=== PATIENT | female | born 2000 | race African-American/Black ===

== ENCOUNTER 2022-06-01 13:31 | Emergency (ER) | payer MEDICAID, SELFPAY ==
[2022-06-01 13:44] VITALS: BP 123/67; PULSE 90; RESP 18; TEMP 36.3; O2SAT 99; BMI 31.2
--- NOTE | 2022-06-01 14:13 | ED.SKABFB ---
HPI - Skin/Abscess/Foreign Bdy General Time Seen by Provider: 14:13 Date Seen: 06/01/22 Chief complaint: Skin/Abscess/Foreign Body Stated complaint: Boil Time Seen by Provider: 06/01/22 14:13 Source: patient, RN notes reviewed and other (Urgent care provider) Mode of arrival: ambulatory Limitations: no limitations History of Present Illness HPI narrative: Patient is a very pleasant [employer] student with a history of PCOS sent to the emergency room from our Urgent Care for evaluation of a labial cyst. Patient tells me that she gets these frequently and usually they last 2-3 days eventually breaking open and draining. Unfortunately, this cyst has been ongoing for 4 days and does not appear to be close to breaking open. She states that she has significant pain on the left perineal area. She has been on antibiotics for 36 hours at this point. Denies history of MRSA, fever or chills. She notes that she was just put on metformin this past week because of this. Urgent care did not feel comfortable managing this patient at their site. Patient notes difficulty with walking and any touch to this area greatly increases her pain. Related Data Home Medications Medication Instructions Recorded Confirmed metformin 500 mg tablet 500 mg PO QDAY 06/01/22 06/01/22 Allergies Allergy/AdvReac Type Severity Reaction Status Date / Time No Known Drug Allergies Allergy Verified 06/01/22 13:44 Review of Systems Status of ROS: Reports: 6 or more systems reviewed and unremarkable except as noted in History and below Const: Denies: fever or chills GI: Denies: abdominal pain, nausea or vomiting Integ/Breast: Reports: skin tenderness and skin swelling PFSH PFSH Social History Smoking Status: Never smoker Do you use any of these nicotine containing products: None Second hand tobacco smoke exposure: No How often do you have a drink containing alcohol: never How often do you have six or more drinks on one occasion: Never AUDIT-C Alcohol total score: 0 Non-prescribed substance use: denies use service: No Exam Narrative: Exam Narrative: Patient is a very pleasant female in no acute distress. No respiratory distress. Examination of the perineal area shows a healing scab on the right. Her on the left she has an area of fullness and fluctuance and the left perineal area. Is below the labia majora. Very tender to the touch. Appears to have perhaps previous scarring or pore in that area. Not warm to the touch. Const: Vital Signs, click to edit/add: Vital Signs - 24 hr 06/01/22 13:44 Temperature 97.4 F L Pulse Rate [Pulse Oximeter] 90 Respiratory Rate 18 Blood Pressure [Le ft Upper Arm] 123/67 Pulse Oximetry 99 Oxygen Delivery Me thod Room Air Documenting provider has reviewed patient's vital signs: yes Course Course Hospital Course: Patient appears to have a perineal cyst. Previous history of this. Upon palpation I think that this is near the surface but certainly is not near where would break open spontaneously and drain as she has experienced in the past. I do suggest incision and drainage of this area. Risks and benefits are discussed with patient and consent form is sign. Risks include bleeding, nerve damage, spread of infection. Will place EMLA at this time but I do think that I will need to inject lidocaine in addition to the topical anesthetic. Reevaluation(s) Reevaluation #1: Incision and drainage procedure note EMLA was placed on the area of fluctuance, left perineum. Bedside ultrasound done showed a proximally 1 x 1.75 cm area of fluid directly beneath skin surface. Area was cleansed with alcohol pad. Lidocaine with epinephrine was used to anesthetize skin surface and then further deeper tissue. A 0.9 cm semi diagonal incision through epidermis and dermis was made. Minimal incursion into the subcutaneous tissue until we encountered a large amount of purulent drainage that came freely from the wound. Culture was accomplished. The incision was extended a total of 0.2 mm for a total of 1.1 cm length. Blunt dissection with forceps carefully done. Large amount of purulent fluid continue to drain. At this time wound is gaping approximately 2 mm. Bleeding is controlled. Small amount of purulence continues to drain. No evidence of extension into the perianal area. Patient tolerated procedure well. Consultations Consultation #1: Consulted with OBGYN in regards to this patient. Will see patient in follow-up. Vital Signs Vital signs: Initial Vital Signs Temperature 97.4 F L 06/01/22 13:44 Temperature Source Temporal Artery Scan 06/01/22 13:44 Pulse Rate 90 06/01/22 13:44 Pulse Rhythm 06/01/22 13:44 Respiratory Rate 18 06/01/22 13:44 Blood Pressure 123/67 06/01/22 13:44 Blood Pressure Mean 85 06/01/22 13:44 Blood Pressure Position Supine 06/01/22 13:44 Pulse Oximetry 99 06/01/22 13:44 Oxygen Delivery Method 06/01/22 13:44 Vital Signs Temperature 97.4 F L 06/01/22 13:44 Pulse Rate 90 06/01/22 13:44 Respiratory Rate 18 06/01/22 13:44 Blood Pressure 123/67 06/01/22 13:44 Pulse Oximetry 99 06/01/22 13:44 Oxygen Delivery Method 06/01/22 13:44 Temperature 97.4 F L 06/01/22 13:44 Pulse Rate 90 06/01/22 13:44 Respiratory Rate 18 06/01/22 13:44 Blood Pressure 123/67 06/01/22 13:44 Pulse Oximetry 99 06/01/22 13:44 Oxygen Delivery Method 06/01/22 13:44 MDM - Skin/Abscess/Foreign Bdy MDM Narrative Medical decision making narrative: 1. Perineal abscess-incision and drainage done after informed consent. Patient tolerated procedure well. Would have patient to continue her antibiotic and take the full course. I do not believe there is any surrounding cellulitis at this point and I and D peers successful. Culture is pending. Discussed use of peroneal bottle after urinating and to cleanse this area while showering. Return to the emergency room for fever, increased swelling, worsening pain as needed. Recommend ibuprofen or Tylenol as needed for discomfort. Pain should be much improved since this pressure is now released. 2. Disposition-home at this time. We are arranging follow-up with OBGYN for recheck. Speak about possibility of further blunt dissection if warranted. I am hoping that will not be the case. Return to the emergency room as needed for worsening symptoms, especially fever, chills, worsening swelling and as needed. Patient request note for school activities. Given her note for no school today and excuse from any athletic or active activities over the next 5 days. Discharge Plan Discharge Clinical Impression: Abscess Patient Disposition: Home, Self-Care Condition: Improved Instructions: Abscess (ED), Abscess Follow-up (ED) Additional Instructions: Continue your antibiotics and finish them out. Ibuprofen or Tylenol as needed for pain. Return to the emergency room for fever, worsening swelling, pain and as needed. Follow-up with OBGYN for recheck on Sunday with Dr. Kohler at 9:30 AM. Use squeeze bottle to help cleanse this area. Prescriptions: No Action metformin 500 mg tablet 500 mg PO QDAY Label Comments: Has not started yet. Follow Up/Referrals: Provider,Not a Local [Primary Care Provider] - Stand Alone Forms: [facility] Info Instructions Procedures I/D Type: abscess Site: other (Lateral perineum/inferior gluteal area) Pre procedure diagnosis: Abscess Post procedure diagnosis: Status post abscess drainage Written consent by: patient Site marking: alternative site marking used Verification/time out: correct patient, correct site and correct procedure Name of person performing procedure: Joy Srivastava [employer] Instructor 1, if any: Nurse [place] Anesthesia I&D: lidocaine 1%, with Epi and other (EMLA) Amount of anesthesia used (mls): 1.5 Side (if applicable): left Sedation/analgesia: none Technique: incised with #11 blade Irrigation: No Packing used?: none Estimated blood loss (if any): less than 5mls Complications: pain Conclusion: patient tolerated procedure
[2022-06-01] MEDS: LIDOCAINE/PRILOCAINE 2.5-2.5% CREAM 1 APPLIC TOPICAL (14:36)
== END 2022-06-01 16:30 | disposition home or self-care (01) ==
PROVIDERS: Emergency Provider Family Medicine
DX: L02.215 Cutaneous abscess of perineum (principal)
CPT/HCPCS: 10060; 56405; 87070; 87186; 99283; 99284

== ENCOUNTER 2022-06-05 10:09 | Outpatient (CLI) | payer MEDICAID, SELFPAY | END 2022-06-05 10:10 | disposition home or self-care (01) | PROVIDERS: Visit Provider Obstetrics & Gynecology | DX: R63.5 Abnormal weight gain (principal); E28.2 Polycystic ovarian syndrome | CPT/HCPCS: 84146; 84443 ==

== ENCOUNTER 2022-07-11 15:55 | Emergency (ER) | payer MEDICAID, SELFPAY ==
[2022-07-11 16:14] VITALS: BP 115/80; PULSE 79; RESP 18; TEMP 36.4; O2SAT 100; BMI 30.7
--- NOTE | 2022-07-11 16:33 | ED_ITS ---
HPI - General Adult General Time Seen by Provider: 16:33 Date Seen: 07/11/22 Chief complaint: Shoulder Injury/Pain Stated complaint: l. shoulder injury Time Seen by Provider: 07/11/22 16:24 Source: patient and RN notes reviewed Mode of arrival: ambulatory Limitations: no limitations History of Present Illness HPI narrative: Patient is a 21-year-old college student from [place] coming in with left shoulder pain. She was leaning on her bed with her elbow flexed and her hand holding her head. She was in this position for a while. Since then her shoulders been aching, hurt today. She has not taken anything today. No prior injury. There was no trauma. No numbness or tingling. It hurts when she moves her arm forward and overhead. She was able to reach behind her back without any difficulty. Related Data Home Medications Medication Instructions Recorded Confirmed metformin 500 mg tablet 500 mg PO QDAY 06/01/22 06/05/22 Previous Rx's Medication Instructions Recorded norelgestromin 150 mcg-e.estradiol 1 patch transdermal QWEEK #3 ea 06/05/22 35 mcg/24 hr weekly transderm patch (Xulane) Allergies Allergy/AdvReac Type Severity Reaction Status Date / Time No Known Drug Allergies Allergy Verified 07/11/22 16:14 Review of Systems Narrative: As per HPI PFSH PFSH Social History Smoking Status: Never smoker Do you use any of these nicotine containing products: None Second hand tobacco smoke exposure: No How often do you have a drink containing alcohol: never How often do you have six or more drinks on one occasion: Never AUDIT-C Alcohol total score: 0 Non-prescribed substance use: denies use service: No Exam Const: Vital Signs, click to edit/add: Vital Signs - 24 hr 07/11/22 16:14 Temperature 97.6 F Pulse Rate [Pulse Oximeter] 79 Respiratory Rate 18 Blood Pressure [Ri ght Upper Arm] 115/80 Pulse Oximetry 100 Oxygen Delivery Me thod Room Air Patient is alert interactive no apparent distress. No midline tenderness of her neck, no paraspinous tenderness. Clavicle and AC joint nontender. There is no glenohumeral joint swelling. She has pain on arc of abduction over 90?, hurts more so coming down. Forward flexion does cause some pain for her. Her biceps tendon is not tender in the bicipital groove. No pain or give-way strength testing with her biceps muscle. She has impingement sign on the left shoulder. Distal neurovascular is intact. No loss of strength but is painful when testing the rotator cuff. Documenting provider has reviewed patient's vital signs: yes Course Course Hospital Course: Reviewed with patient that I believe that she has irritated her rotator cuff tendon or bursa by the position yesterday. Given there was no trauma, do not feel that we need xrays at this time, if ongoing issues, can be ordered if needed. Will have her treat conservatively, follow up with orthopedics if ongoing issues. Vital Signs Vital signs: Initial Vital Signs Temperature 97.6 F 07/11/22 16:14 Temperature Source Temporal Artery Scan 07/11/22 16:14 Pulse Rate 79 07/11/22 16:14 Pulse Rhythm Regular 07/11/22 16:14 Respiratory Rate 18 07/11/22 16:14 Blood Pressure 115/80 07/11/22 16:14 Blood Pressure Mean 91 07/11/22 16:14 Blood Pressure Position Sitting 07/11/22 16:14 Pulse Oximetry 100 07/11/22 16:14 Oxygen Delivery Method Room Air 07/11/22 16:14 Vital Signs Temperature 97.6 F 07/11/22 16:14 Pulse Rate 79 07/11/22 16:14 Respiratory Rate 18 07/11/22 16:14 Blood Pressure 115/80 07/11/22 16:14 Pulse Oximetry 100 07/11/22 16:14 Oxygen Delivery Method Room Air 07/11/22 16:14 Temperature 97.6 F 07/11/22 16:14 Pulse Rate 79 07/11/22 16:14 Respiratory Rate 18 07/11/22 16:14 Blood Pressure 115/80 07/11/22 16:14 Pulse Oximetry 100 07/11/22 16:14 Oxygen Delivery Method Room Air 07/11/22 16:14 Discharge Plan Discharge Clinical Impression: Acute pain of left shoulder Patient Disposition: Home, Self-Care Condition: Stable Instructions: Rotator Cuff Tendinitis (ED), Shoulder Pain (ED) Additional Instructions: Use Tylenol 1000 mg 3 times a day, ibuprofen 600 mg 3 to 4 times a day with food as needed for pain. Ice the left shoulder. If you are not improving over the next week or worsening, do recommend contacting the orthopedic office to get scheduled for follow-up. That number is [phone]. Activity above your shoulder, pressing on the shoulder like sleeping on your left shoulder are all activities that might aggravate your shoulder at this time. Activity Level: Activity as Tolerated Prescriptions: No Action Xulane 150-35 mcg/24 hr patch weekly 1 patch transdermal QWEEK Qty: 3 4RF Rx Instructions: apply once weekly for 3 weeks of a 4-week cycle metformin 500 mg tablet 500 mg PO QDAY Patient Comments: Has not started yet. Follow Up/Referrals: Provider,Not a Local [Primary Care Provider] - Stand Alone Forms: [employer] Info Instructions
== END 2022-07-11 17:15 | disposition home or self-care (01) ==
PROVIDERS: Emergency Provider Family Medicine
DX: M25.512 Pain in left shoulder (principal)
CPT/HCPCS: 99282; 99283

== ENCOUNTER 2022-10-02 09:08 | Emergency (ER) | payer MEDICAID, SELFPAY ==
[2022-10-02 09:24] VITALS: BP 125/80; PULSE 84; RESP 18; TEMP 36.5; O2SAT 99; BMI 30.7
--- NOTE | 2022-10-02 09:32 | ED.SKABFB ---
HPI - Skin/Abscess/Foreign Bdy General Time Seen by Provider: 09:32 Date Seen: 10/02/22 Chief complaint: Skin/Abscess/Foreign Body Stated complaint: Abscess on groin Time Seen by Provider: 10/02/22 09:25 Source: patient and RN notes reviewed Mode of arrival: ambulatory Limitations: no limitations History of Present Illness HPI narrative: Patient is a very pleasant 21-year-old female with history of PCOS and hidradenitis suppurativa who presents to the [facility] [place] [facility] for evaluation of 2 potential areas of swelling on the groin. Patient notes that she has boils at least monthly. They she presents with concerns regarding the swelling and irritation of an area on her left upper mons pubis as well as the inferior buttock area. She has not had fever or chills but does report occasional headaches. She notes that the goal is to not use antibiotics when she has something like this happen. She is willing to have these areas lanced today if necessary. I did see her for similar complaints a few months ago and she has not had the opportunity to follow-up with OBGYN at this point. Related Data Home Medications Medication Instructions Recorded Confirmed metformin 500 mg tablet 500 mg PO QDAY 06/01/22 10/02/22 ferrous sulfate 325 mg (65 mg 325 mg PO DAILY 10/02/22 10/02/22 iron) tablet (FeroSul) Previous Rx's Medication Instructions Recorded norelgestromin 150 mcg-e.estradiol 1 patch transdermal QWEEK #3 ea 06/05/22 35 mcg/24 hr weekly transderm patch (Xulane) Allergies Allergy/AdvReac Type Severity Reaction Status Date / Time No Known Drug Allergies Allergy Verified 10/02/22 09:30 Review of Systems Status of ROS: Reports: 6 or more systems reviewed and unremarkable except as noted in History and below Const: Denies: fever or chills GI: Denies: abdominal pain, nausea or vomiting Integ/Breast: Reports: skin pain, skin tenderness and skin swelling Neuro: Reports: headache PFSH PFSH Social History Smoking Status: Never smoker Do you use any of these nicotine containing products: None Second hand tobacco smoke exposure: No How often do you have a drink containing alcohol: never How often do you have six or more drinks on one occasion: Never AUDIT-C Alcohol total score: 0 Non-prescribed substance use: denies use service: No Exam Narrative: Exam Narrative: Patient is alert and oriented. Very pleasant young woman in no acute distress. Examination of the genital area shows at area of firmness but no significant fluctuance on the left upper mons pubis. No evidence of purulent discharge at this time. No surrounding erythema. On the inferior buttock just distal to the labia majora on the left there is a firm area of measuring approximately 2 x 2 cm with tenderness. There is a well-healed scar in this area measuring approximately 1.25 cm there does appear to be increased tautness of the skin in this area. No significant surrounding erythema. No drainage at this time. Patient was diagnosed with PCOS and hidradenitis suppurativa when she was in high school living in [facility]. She has been treated with various therapies including homeopathic remedies such as (karine, honey, sitz baths, and multiple antibiotics). She also notes that she has had several abscesses underneath her armpits. She no longer have those abscesses underneath her armpits but describes groin symptoms at least monthly. Const: Vital Signs, click to edit/add: Vital Signs - 24 hr 10/02/22 09:24 Temperature 97.7 F Pulse Rate [Right Pulse Oximeter] 84 Respiratory Rate 18 Blood Pressure [Ri ght Upper Arm] 125/80 Pulse Oximetry 99 Oxygen Delivery Me thod Room Air Documenting provider has reviewed patient's vital signs: yes Course Course Hospital Course: At this time I do not believe that incision and drainage of the painful area on the mons pubis would be beneficial. I do not feel that this is organized into a drainable abscess at this point. However on the inferior buttocks I do think that this would be hill to perform incision and drainage. Risks benefits were discussed with patient. This would include bleeding, infection, discomfort. Patient is agreeable to this plan. Reevaluation(s) Reevaluation #1: Procedure note: Patient had area of abscess prepped with Betadine swabs. 1% lidocaine with epinephrine was infused in wheel like fashion on the edge of previous scarring. A 4 mm linear cut was made without immediate release of purulent fluid. This area was extended 1-1/2 mm on each edge and blunt dissection with minimal effort was made and a large amount of purulent fluid was drained. No significant foul smell. Small amount of blood with this as well. I was able to express further purulent fluid. Mostly liquid at this point. There are no firm amounts of debris that are coming out. A small wick was placed. Hemostasis achieved. Vital Signs Vital signs: Initial Vital Signs Temperature 97.7 F 10/02/22 09:24 Temperature Source Temporal Artery Scan 10/02/22 09:24 Pulse Rate 84 10/02/22 09:24 Respiratory Rate 18 10/02/22 09:24 Blood Pressure 125/80 10/02/22 09:24 Blood Pressure Mean 95 10/02/22 09:24 Blood Pressure Position Sitting 10/02/22 09:24 Pulse Oximetry 99 10/02/22 09:24 Oxygen Delivery Method Room Air 10/02/22 09:24 Vital Signs Temperature 97.7 F 10/02/22 09:24 Pulse Rate 84 10/02/22 09:24 Respiratory Rate 18 10/02/22 09:24 Blood Pressure 125/80 10/02/22 09:24 Pulse Oximetry 99 10/02/22 09:24 Oxygen Delivery Method Room Air 10/02/22 09:24 Temperature 97.7 F 10/02/22 09:24 Pulse Rate 84 10/02/22 09:24 Respiratory Rate 18 10/02/22 09:24 Blood Pressure 125/80 10/02/22 09:24 Pulse Oximetry 99 10/02/22 09:24 Oxygen Delivery Method Room Air 10/02/22 09:24 MDM - Skin/Abscess/Foreign Bdy MDM Narrative Medical decision making narrative: 1. Abscess-incision and drainage after informed consent done in the emergency room. A wick is in place at this time. Will have patient follow-up with OBGYN this week for recheck. Although the wick is in place and taped of this is in a challenging area to keep clean. If this does fall out of it does not need to be replaced at this time. Recommend warm water bath. In regards to evolving abscess on mons pubis, I do not feel that this is organized and that an incision drainage would not be helpful at this time. Recommend monitoring and warm packs. Patient would like to avoid antibiotics at this point and I would tend to agree with her. 2. Disposition-home at this time. Return for worsening symptoms and as needed. Follow-up with Ob GI why end for recheck. Course for fever, chills, increasing swelling erythema vomiting she will need to return to the emergency room. I do not expect this would happen. Medical Records Attestation: I reviewed the patient's medical records. Discharge Plan Discharge Clinical Impression: Abscess Patient Disposition: Home, Self-Care Condition: Improved Additional Instructions: Leave wick in as long as possible but if it falls out it should not cause a problem. Seek medical attention for fever, worsening symptoms and as needed. Ibuprofen or Tylenol as needed for discomfort. Follow up appointment is scheduled at the [facility] on 10/03 with a 1:30pm appointment time. If you have any questions or need to reschedule, please call [phone]. [address] [address] Prescriptions: No Action Xulane 150-35 mcg/24 hr patch weekly 1 patch transdermal QWEEK Qty: 3 4RF Rx Instructions: apply once weekly for 3 weeks of a 4-week cycle metformin 500 mg tablet 500 mg PO QDAY Patient Comments: Has not started yet. ferrous sulfate [FeroSul] 325 mg (65 mg iron) tablet 325 mg PO DAILY Follow Up/Referrals: Provider,Not a Local [Primary Care Provider] - Stand Alone Forms: [employer] Info Instructions
== END 2022-10-02 10:47 | disposition home or self-care (01) ==
LOC: ED 10:35
PROVIDERS: Emergency Provider Family Medicine
DX: L02.215 Cutaneous abscess of perineum (principal); L02.31 Cutaneous abscess of buttock
CPT/HCPCS: 10060; 99283

== ENCOUNTER 2022-10-13 15:16 | Outpatient (CLI) | payer MEDICAID, SELFPAY | END 2022-10-13 15:17 | disposition home or self-care (01) | PROVIDERS: Visit Provider Family Medicine | DX: Z00.00 Encounter for general adult medical examination without abnormal findings (principal); E66.9 Obesity, unspecified; D50.9 Iron deficiency anemia, unspecified; R63.5 Abnormal weight gain; R53.83 Other fatigue; F41.9 Anxiety disorder, unspecified; E28.2 Polycystic ovarian syndrome; Z13.6 Encounter for screening for cardiovascular disorders | CPT/HCPCS: 80053; 80061; 82728; 84443 ==

== ENCOUNTER 2023-01-05 12:07 | Outpatient (CLI) | payer MEDICAID, SELFPAY ==
[2023-01-05 16:33] LABS: Chlamydia DNA Amplified* NOT DETECTED (No Detected); GC DNA Amplified* NOT DETECTED (No Detected)
== END 2023-01-05 12:08 | disposition home or self-care (01) ==
LOC: NFLDREF 12:08
PROVIDERS: Visit Provider Physician Assistant
DX: Z01.812 Encounter for preprocedural laboratory examination (principal); Z13.9 Encounter for screening, unspecified; Z11.3 Encounter for screening for infections with a predominantly sexual mode of transmission
CPT/HCPCS: 87491; 87591

== ENCOUNTER 2023-02-10 16:56 | Emergency (ER) | payer MEDICAID, SELFPAY ==
[2023-02-10 17:10] VITALS: BP 134/73; PULSE 87; RESP 18; TEMP 36.3; O2SAT 99; BMI 32.4
--- NOTE | 2023-02-10 17:29 | ED_ITS ---
HPI - General Adult General Date Seen: 02/10/23 Chief complaint: Abdominal Pain Stated complaint: lower abdominal pain Time Seen by Provider: 02/10/23 17:16 Source: patient Mode of arrival: ambulatory Limitations: no limitations History of Present Illness HPI narrative: Patient is a 22-year-old with a history of polycystic ovarian disorder and IUD placement about a month ago who presents for lower abdominal cramping. She said that this started 2 days ago, she thought it was menstrual cramping but seems to be getting worse. It is improved by ibuprofen but comes back when the ibuprofen wears off. It is bilateral but more on the right than the left. She had some spotting after the IUD placement for couple weeks but no bleeding since then. Denies sexual activity or new sexual partners concerns about STIs. She has not had any unusual vaginal discharge. She has not had fevers. She did vomit prior to coming in this afternoon but otherwise has not had any vomiting or diarrhea. Maybe a little nausea in the past couple of hours but otherwise her appetite has been normal. She does not have a history of similar pain in terms of intensity although the quality is similar to to menstrual cramps. She does not have any urinary symptoms. No prior abdominal surgeries. Denies tobacco, alcohol or drug use, [employer] student. Related Data Home Medications Medication Instructions Recorded Confirmed metformin 500 mg tablet 500 mg PO QDAY 06/01/22 01/19/23 ferrous sulfate 325 mg (65 mg 325 mg PO DAILY 10/02/22 01/19/23 iron) tablet (FeroSul) Previous Rx's Medication Instructions Recorded fluoxetine 20 mg capsule 20 mg PO QDAY #90 caps 01/19/23 Allergies Allergy/AdvReac Type Severity Reaction Status Date / Time faustino AdvReac Intermediate Rash Uncoded 01/19/23 14:02 Review of Systems Status of ROS: Reports: 10 or more systems reviewed and unremarkable except as noted in History and below [facility] Medical History Generalized anxiety disorder ?F41.1 - Generalized anxiety disorder (ICD-10) Obesity (BMI 30.0-34.9) ?E66.9 - Obesity, unspecified (ICD-10) Iron (Fe) deficiency anemia ?D50.9 - Iron deficiency anemia, unspecified (ICD-10) Anxiety (~01/05/23) ?F41.9 - Anxiety disorder, unspecified (ICD-10) Hidradenitis suppurativa ?L73.2 - Hidradenitis suppurativa (ICD-10) PCOS (polycystic ovarian syndrome) ?E28.2 - Polycystic ovarian syndrome (ICD-10) Surgical History (Updated 01/19/23 @ 14:26 by Eleonora Luna MD) Encounter for IUD insertion (~12/2022) ?Z30.430 - Encounter for insertion of intrauterine contraceptive device (ICD- 10) No history of previous surgery Family History Mother Diabetes Father Diabetes Alcohol dependence Uncle FH: mental illness Social History Narrative: Single, [employer] student of psychology/ culture/neuro science. Born in [place] live the [facility] Exercise 3 times a week weight 60 minutes, dance 30 minutes, incline walking on treadmill 30 minutes Nonsmoker Rare alcohol use, no drugs [employer] student. From [facility]. Nonsmoker, no alcohol use, no illicit drug use Smoking Status: Never smoker Do you use any of these nicotine containing products: None Second hand tobacco smoke exposure: No How often do you have a drink containing alcohol: never How often do you have six or more drinks on one occasion: Never AUDIT-C Alcohol total score: 0 Non-prescribed substance use: denies use Little interest or pleasure in doing things: several days Feeling down, depressed, or hopeless: more than half the days service: No Exam Narrative: Exam Narrative: Vital signs as noted above. In general, an alert, well-appearing patient. Looks comfortable. Head: Normocephalic, atraumatic. Eyes: Pupils are equal reactive. Extraocular movements are full. Conjunctivae are normal. ENT: Mucous membranes are moist. Neck: Supple without lymphadenopathy. Heart: Regular rate and rhythm. No murmur or rub. Lungs: Clear bilaterally. No increased work of breathing, crackles or wheezes. Abdomen: Soft and nondistended. Nontender to palpation including McBurney's point, no rebound guarding or rigidity. Negative Ascencio's. Extremities: Well perfused. No edema. No calf tenderness. Pulses intact. Neurologic: Patient is alert and oriented to person and place. Speech is fluent. Face is symmetric. Moves all extremities equally. Affect: Normal. Skin: Warm and dry. Well perfused. Const: Vital Signs, click to edit/add: Vital Signs - 24 hr 02/10/23 17:10 Temperature 97.4 F L Pulse Rate [Pulse Oximeter] 87 Respiratory Rate 18 Blood Pressure [Le ft Upper Arm] 134/73 Pulse Oximetry 99 Oxygen Delivery Me thod Room Air Documenting provider has reviewed patient's vital signs: yes Course Course ED Course: Overall exam is pretty non concerning, she feels comfortable at this time after taking ibuprofen a couple of hours ago, denies need for pain medication or anything for nausea at this time. Plan will be to check some basic labs, I think those are normal be reasonable to do a pelvic ultrasound to evaluate for possible cyst. Certainly possible that she is having her period and not having any bleeding secondary to the IUD and is just having some more intense cramping. Appendicitis felt to be less likely given normal appetite and lack of abdominal tenderness but if labs are significantly abnormal a would potentially consider CT scanning. Labs notable for normal white blood cell count of 4.9, hemoglobin of 11.8, no left shift. CRP minimally elevated at 1.6, metabolic panel LFTs normal. Urinalysis ordered but does not appear to have been collected yet. She went on to have a pelvic ultrasound. This is read as follows by Radiology:FINDINGS: Reported last menstrual period: 01/08/2023. The uterus is normal in size and position and measures 7.1 x 3.6 x 4.9 cm. No uterine masses. The endometrial stripe measures 1.0 cm in double thickness. No endometrial masses. IUD appears to be in sonographically appropriate position. The cervix is normal. The right ovary measures 4.8 x 2.2 x 2.2 cm. Physiologic appearance without a dominant cystic lesion or solid ovarian/adnexal mass. There is normal arterial and venous color Doppler flow and normal arterial and venous waveforms on duplex Doppler. The left ovary measures 6.8 x 3.9 x 4.8 cm. There is a 5.1 x 3.8 x 4.4 cm complex adnexal cyst. There are some somewhat thick septations with anechoic areas and a large area of lace-like reticular echogenicity. No internal vascularity. No solid nodular component. No solid or worrisome left adnexal mass. There is normal arterial and venous color Doppler flow and normal arterial and venous waveforms on duplex Doppler. Trace free fluid. IMPRESSION: 1. The intrauterine device is in radiographically in good position within the endometrial canal. 2. There is a 5.1 cm left ovarian hemorrhagic cyst. She did have some Toradol IM here, she said that was very helpful, minimal pain at this time. I am not overly concerned about the possibility of ovarian torsio n in this patient given the progression of symptoms, minimal pain and good blood flow on ultrasound. Hemorrhagic cyst is likely largely contributory to her symptoms. Recommend supportive care, ibuprofen or Tylenol, Gyne follow-up. Return for severe uncontrolled pain or new symptoms such as fever, persistent vomiting, etcetera. Vital Signs Vital signs: Initial Vital Signs Temperature 97.4 F L 02/10/23 17:10 Temperature Source Temporal Artery Scan 02/10/23 17:10 Pulse Rate 87 02/10/23 17:10 Pulse Rhythm Regular 02/10/23 17:10 Respiratory Rate 18 02/10/23 17:10 Blood Pressure 134/73 02/10/23 17:10 Blood Pressure Mean 93 02/10/23 17:10 Blood Pressure Position Supine 02/10/23 17:10 Pulse Oximetry 99 02/10/23 17:10 Oxygen Delivery Method Room Air 02/10/23 17:10 Vital Signs Temperature 97.4 F L 02/10/23 17:10 Pulse Rate 87 02/10/23 17:10 Respiratory Rate 18 02/10/23 17:10 Blood Pressure 134/73 02/10/23 17:10 Pulse Oximetry 99 02/10/23 17:10 Oxygen Delivery Method Room Air 02/10/23 17:10 Temperature 97.4 F L 02/10/23 17:10 Pulse Rate 87 02/10/23 17:10 Respiratory Rate 18 02/10/23 17:10 Blood Pressure 134/73 02/10/23 17:10 Pulse Oximetry 99 02/10/23 17:10 Oxygen Delivery Method Room Air 02/10/23 17:10 Medications Administered Medications: Discontinued Medications Generic Name Dose Route Start Last Admin Trade Name Freq PRN Reason Stop Dose Admin Ketorolac Tromethamine 30 mg 02/10/23 18:39 02/10/23 19:05 Ketorolac 30 Mg/Ml Inj IM 02/10/23 18:40 30 mg ONCE ONE Administration Medical Decision Making Lab Data Labs: Lab Results 02/10/23 Range/Units 17:38 WBC 4.89 (4.50-11.00) K/uL RBC 4.58 (4.00-5.20) m/uL Hgb 11.8 L (12.0-16.0) gm/dL Hct 37.6 (33.0-51.0) % MCV 82 (80-100) fL MCH 26 (26-34) pg MCHC 31 L (32-36) gm/dL RDW Coeff of Bill 14.0 (11.5-15.5) % Plt Count 378 (140-440) K/uL Neut % (Auto) 49.7 (42.0-72.0) % Lymph % (Auto) 40.9 (20-44) % Sheridan % (Auto) 7.8 (0.0-11.0) % Eos % (Auto) 1.0 (0.0-7.0) % Baso % (Auto) 0.2 (0.0-3.0) % Neut # (Auto) 2.43 (1.7-7.0) K/uL Lymph # (Auto) 2.00 (0.90-2.90) K/uL Sheridan # (Auto) 0.40 (0.00-0.90) K/UL Eos # (Auto) 0.05 (0.00-0.50) K/uL Baso # (Auto) 0.01 (0.00-0.30) K/uL Abs Immat Gran (auto) 0.02 (0.00-0.30) K/uL Imm/Tot Granulo (auto) 0.4 % Sodium 139 (135-149) mmol/L Potassium 4.0 (3.6-5.1) mmol/L Chloride 107 (96-114) mmol/L Carbon Dioxide 22 (20-32) mmol/L Anion Gap 10 (7-15) mEq/L BUN 15 (5-24) mg/dL Creatinine 0.6 (0.5-1.5) mg/dL Estimated Creat Clear 140.01 Estimated GFR 132 ml/min Glucose 119 H (60-115) mg/dL Calcium 9.3 (8.4-10.6) mg/dL Total Bilirubin 0.3 (0.1-1.5) mg/dL Direct Bilirubin 0.0 (0.0-0.5) mg/dL AST 26 (12-35) U/L ALT 17 (4-35) U/L Alkaline Phosphatase 102 (40-150) U/L C-Reactive Protein 1.6 H (0.5-1.0) mg/dL Total Protein 7.3 (6.0-8.3) g/dL Albumin 4.0 (3.3-5.0) g/dL Discharge Plan Discharge Clinical Impression: Hemorrhagic cyst of left ovary Patient Disposition: Home, Self-Care Condition: Improved Instructions: Ovarian Cyst (ED) Additional Instructions: Ibuprofen 400 mg plus Tylenol 1000 mg 3 times daily as needed for pain. Your ultrasound shows a hemorrhagic cyst, meaning a cyst that has had bleeding inside of it. This is likely the cause of your discomfort over the past couple of days. This typically improves with time. You should not have severe uncontrolled pain going forward, if so you should return for re-evaluation. Likewise if you have new symptoms such as fever, persistent vomiting, or other worsening returned any time. Otherwise, I would recommend follow-up in Gyne clinic, to schedule. Your IUD looks well positioned. Activity Level: No Restrictions Discharge Diet: Regular Prescriptions: No Action metformin 500 mg tablet 500 mg PO QDAY Patient Comments: Has not started yet. fluoxetine 20 mg capsule 20 mg PO QDAY Qty: 90 0RF ferrous sulfate [FeroSul] 325 mg (65 mg iron) tablet 325 mg PO DAILY Follow Up/Referrals: Eleonora Luna MD [Primary Care Provider] - Stand Alone Forms: Stipple Info Instructions
[2023-02-10 17:45] LABS: Basophils Absolute Auto 0.01 K/uL (0.00-0.30); Basophils Percent Auto 0.2 % (0.0-3.0); Eosinophils Absolute Auto 0.05 K/uL (0.00-0.50); Hematocrit 37.6 % (33.0-51.0); Hemoglobin* 11.8 gm/dL (12.0-16.0); Immature Granulocytes Abs Auto 0.02 K/uL (0.00-0.30); Immature Granulocytes Pct Auto 0.4 %; Lymphocytes Percent Auto 40.9 % (20-44); Mean Corpuscular HGB Conc 31 gm/dL (32-36); Mean Corpuscular Hemoglobin 26 pg (26-34); Mean Corpuscular Volume 82 fL (80-100); Monocytes Percent Auto 7.8 % (0.0-11.0); Neutrophils Absolute Auto 2.43 K/uL (1.7-7.0); Neutrophils Percent Auto 49.7 % (42.0-72.0); Platelet Count* 378 K/uL (140-440); Red Blood Count 4.58 m/uL (4.00-5.20); White Blood Count* 4.89 K/uL (4.50-11.00)
[2023-02-10 17:53] LABS: Slide Review Reflex No
[2023-02-10 17:55] LABS: Chloride* 107 mmol/L (96-114); Sodium* 139 mmol/L (135-149)
[2023-02-10 17:58] LABS: Creatinine* 0.6 mg/dL (0.5-1.5); Est. Creatinine Clearance* 140.01; Estimated Glomerular Filt Rate 132 ml/min
[2023-02-10 17:59] LABS: Anion Gap 10 mEq/L (7-15); Aspartate Amino Transferase* 26 U/L (12-35); Bilirubin Total* 0.3 mg/dL (0.1-1.5); Blood Urea Nitrogen* 15 mg/dL (5-24); Calcium* 9.3 mg/dL (8.4-10.6); Carbon Dioxide* 22 mmol/L (20-32); Glucose* 119 mg/dL (60-115); Total Protein* 7.3 g/dL (6.0-8.3)
[2023-02-10 18:00] LABS: Alanine Aminotransferase* 17 U/L (4-35); Alkaline Phosphatase* 102 U/L (40-150)
[2023-02-10 18:02] LABS: C Reactive Protein* 1.6 mg/dL (0.5-1.0)
--- NOTE | 2023-02-10 18:04 | CRLHL7_ITS ---
For Patients: As a result of the Century Cures Act, medical imaging exams and procedure reports are released immediately into your electronic medical record. You may view this report before your referring provider. If you have questions, please contact your health care provider. INDICATION: Lower abdominal pain, recent IUD placement COMPARISON: None. TECHNIQUE: TA: Multiple transverse and longitudinal transabdominal images of the pelvis are performed using the distended bladder as an acoustic window. Color-flow and spectral Doppler imaging of both ovaries is performed. TV: Transvaginal ultrasound of the pelvis was performed to better visualize the genitourinary organs, such as the ovaries and/or endometrium. Color-flow and spectral Doppler imaging of both ovaries is performed. FINDINGS: Reported last menstrual period: 01/08/2023. The uterus is normal in size and position and measures 7.1 x 3.6 x 4.9 cm. No uterine masses. The endometrial stripe measures 1.0 cm in double thickness. No endometrial masses. IUD appears to be in sonographically appropriate position. The cervix is normal. The right ovary measures 4.8 x 2.2 x 2.2 cm. Physiologic appearance without a dominant cystic lesion or solid ovarian/adnexal mass. There is normal arterial and venous color Doppler flow and normal arterial and venous waveforms on duplex Doppler. The left ovary measures 6.8 x 3.9 x 4.8 cm. There is a 5.1 x 3.8 x 4.4 cm complex adnexal cyst. There are some somewhat thick septations with anechoic areas and a large area of lace-like reticular echogenicity. No internal vascularity. No solid nodular component. No solid or worrisome left adnexal mass. There is normal arterial and venous color Doppler flow and normal arterial and venous waveforms on duplex Doppler. Trace free fluid. IMPRESSION: 1. The intrauterine device is in radiographically in good position within the endometrial canal. 2. There is a 5.1 cm left ovarian hemorrhagic cyst. Dictated by Zuri Marsh MD @ 02/10/2023 8:34:45 PM (Electronically Signed)
[2023-02-10] MEDS: KETOROLAC 30 MG/ML inj IM (19:05)
== END 2023-02-10 20:49 | disposition home or self-care (01) ==
PROVIDERS: Emergency Provider Emergency Medicine; PCP Family Medicine
DX: N83.202 Unspecified ovarian cyst, left side (principal); Z13.6 Encounter for screening for cardiovascular disorders
CPT/HCPCS: 36415; 76830; 76856; 80048; 80076; 81001; 81025; 85025; 86140; 93976; 96372; 99284; J1885

== ENCOUNTER 2023-05-23 14:46 | Outpatient (CLI) | payer MEDICAID, SELFPAY | END 2023-05-23 14:47 | disposition home or self-care (01) | PROVIDERS: PCP Family Medicine; Visit Provider Family Medicine | DX: D50.9 Iron deficiency anemia, unspecified (principal) | CPT/HCPCS: 82607; 82728 ==

== ENCOUNTER 2023-06-20 14:34 | Outpatient (RCR) | payer MEDICAID, SELFPAY ==
--- NOTE | 2023-06-22 08:06 | PT.OPEX ---
PT [facility] Outpatient Eval PT [facility] Outpatient Eval Start: 06/13/23 07:49 Freq: Status: Active Protocol: Document 06/20/23 14:35 KLV (Rec: 06/20/23 15:08 KLV [id number]) E-signed By Celina Douglass, PT Physical Therapy Outpatient Evaluation Insurance Information Recert Due Date 09/14/23 Insurance Information/Comments [employer] medicaid Medical Diagnosis Pain in right ankle and joints in right foot Treating Diagnosis Right ankle pain, hypermobility, ankle weakness Referring MD Luna Subjective Subjective Makayla reports to PT with acute on chronic ankle pain and reoccurring ankle sprains since she was a child R>L. Most recently suffered from a pretty severe inversion ankle sprain while in her home country of [place]. She had an x-ray at that time which was unremarkable. She has generalized hypermobility and significant flat feet. Typically she has walked on the outsides of her feet as that has given her the most balance. She recently started wearing small arch support inserts in her shoes however no significant change with this yet. She has been able to walk with 3/10 pain. No pain at rest. She likes to participate in dance however has had to limit the amount she jumps/hops. She does have an ankle brace but does not use this frequently. PMH:RIVAS, obesity, anxiety, anemia Pain Comments 06/02 Date of Last Physician Visit 05/23/23 Current Work Status Student Objective Other/Pertinent Objective Ankle ROM: General hypermobility B, equal and pain free today Ankle Strength (R/L): -DF: R: 4/5, L: 4+/5 -PF (uni heel raise): R: 1 reps painful, L: 8 reps -Inv: R: 4/5, L: 4+/5 -Polly: R: 4-/5, L: 4/5 Ankle Ligamentous: -Ant Drawer: more laxity R compared to L -Post Drawer: - -Syndesmosis (Kleiger): - -Lateral ankle: + R -Medial ankle: - TTP deltoid ligament and ATFL Functional Test Performed & Score LEFS IE: 47/80 Assessment Assessment/Impression Patient is a 22 year old female presenting to physical therapy for evaluation and treatment of right ankle pain following multiple ankle sprains throughout her life. Patient presents with generalizes hypermobility, medial and lateral ankle pain, impaired balance, ankle weakness. These impairments are limiting the patients ability to walk, dance, jump, hop. Patient appears motivated to participate in PT and presents with good prognosis to improve mobility, strength, proprioception and return to functional activities with skilled physical therapy intervention. Primary Functional Limitations walk, dance, jump, hop Plan of Care Rehabilitation Potential Good Physical Therapy Goals In 6 weeks (08/03/23) Pt will be able to demonstrate 10 single leg heel raises in order to progress to more dynamic ankle strengthening Pt will demonstrate at least 4 +/5 ankle strength in all directions in order to demonstrate functional improvement In 10 weeks (08/31/23) Pt will be able to balance at least 30 sec on foam in order to demonstrate improvement in dynamic stability Pt will report <1/10 ankle pain and 0 occurrences of ankle sprains/feeling of instability over a 2 week period with all activities including dance Pt will exhibit 9 pt improvement in LEFS Outcome measure to demonstrate functional improvement and progress towards goals. Treatment Plan/Direct Interventions Gait Training,Ice/Cold/ Vasopneumatic,Joint Mobilization,Manual Therapy, Neuromuscular Re-ed,Self-Care/ Home Management,Therapeutic Activities,Therapeutic Exercises Frequency/Duration 1x/wk for 6 weeks with additional 2-4 sessions prn based on progress Patient Will Be Discharged From Therapy Completion of LTG(s), Independent w/HEP, Independently Progressing Evaluation Billing Untimed Code Treatment Minutes 23 Complexity Low Certification Information Initial Certification Date 06/22/23 Ending Certification Date 09/16/23 Provider Signature Shows Agreement With POC & Medical Necessity Physician Signature & Date Requested Please Sign/Date Here Physician Comment/Change : Physician NPI Number #
== END 2023-10-18 23:59 | disposition home or self-care (01) ==
PROVIDERS: PCP Family Medicine; Visit Provider Family Medicine
DX: M25.571 Pain in right ankle and joints of right foot (principal); T14.8XXA Other injury of unspecified body region, initial encounter; Z74.09 Other reduced mobility; R29.898 Other symptoms and signs involving the musculoskeletal system; Z51.89 Encounter for other specified aftercare
CPT/HCPCS: 97110; 97161

== ENCOUNTER 2023-07-06 15:14 | Outpatient (CLI) | payer MEDICAID, SELFPAY ==
--- OUTSIDE RECORDS SUMMARY | 2023-07-06 15:16 | XMS_ITS | Clinical Summary ---
Author Name Unknown Organization [facility] Address [place], [place] [address] Care Team Providers Care Twister Tender Paper Name Role Phone [facility] Primary Care Provider Unavail able Allergies No known active allergies Medications Medication Sig Dispensed Refills Start Date End Date Status Xulane 150-35 mcg/24 hr patch APPLY 1 PATCH TOPICALLY TO THE SKIN EVERY WEEK FOR 3 WEEKS DIRECTED 05/17/2022 Active albuterol HFA (PRO-AIR; VENTOLIN; PROVENTIL) 90 mcg/actuation inhalerIndications:E xercise-induced asthma Inhale 1-2 Puffs by mouth every 4 hours if needed for Shortness Of Breath or Wheezing. 1 Each 05/29/2022 Active ferrous sulfate, 65 mg elemental, tabletIndications:Ir on deficiency anemia secondary to inadequate dietary iron intake Take 1 Tablet (325 mg) by mouth once daily with a meal. 90 Tablet 2 06/13/2022 Active metFORMIN (GLUCOPHAGE XR) 500 mg Extended-Release tabletIndications:PC OS (polycystic ovarian syndrome) Take 1 Tablet (500 mg) by mouth once daily. 90 Tablet 3 09/05/2022 Active Immunizations Name Administration Dates Next Due DTaP 03/23/2003,02/06/2003,01/06/2003 HIB-HepB (Comvax) 04/20/2004,02/06/2003,01/07/20 03 HPV 9 (Gardasil 9) 04/26/2016,01/24/2015 Hepatitis B (Peds) 2002 Inactivated Polio Vaccine 03/23/2003,02/06/2003, 01/06/2003 Influenza, IIV3 (Age 6-35 mos) 04/20/2004 Influenza, IIV4 01/04/2022,01/31/2021 MMR 04/20/2004 Pneumococcal conj 7-Valent ( Prevnar 7) 04/20/2004,03/23/2003,02/06/2003,2002 Tdap 01/24/2015 Varicella Vaccine 04/20/2004 Family History Medical History Relation Name Comments Asthma Brother Eczema Brother Diabetes type II Father Hypertension Father Sickle cell anemia Maternal Uncle Diabetes type II Mother Fibroids Mother Relation Name Status Comments Brother Alive Father Alive Maternal Uncle Alive Mother Alive Social History Tobacco Use Types Packs/Day Years Used Date Smoking Tobacco: Never Smokeless Tobacco: Never Tobacco Cessation:Counseling Given: Not Answered Alcohol Use Standard Drinks/Week Comments Never 0 (1 standard drink = 0.6 oz pur e alcohol) PHQ-2 Answer Date Recorded PHQ-2 TOTAL SCORE 0 09/05/2022 Social Connections Answer Date Recorded Frequency of Communication with Friends and Fami ly Not on file 05/29/2022 Sex and Gender Information Value Date Recorded Sex Assigned at Not on file Gender Identity Not on file Sexual Orientation Not on file Obstetrics History Last Filed Vital Signs Vital Sign Reading Time Taken Comments Blood Pressure 101/69 09/05/2022 3:14 PM CDT Pulse 97 09/05/2022 3:14 PM CDT Temperature - - Respiratory Rate - - Oxygen Saturation 99% 09/05/2022 3:14 PM CDT Inhaled Oxygen Concentration - - Weight 92.8 kg (204 lb 9.6 oz) 09/05/2022 3:14 P M CDT Height 167.5 cm (5' 5.95) 05/29/2022 7:10 AM CS T Body Mass Index - - Plan of Treatment Health Maintenance Due Date Last Done Comments COVID-19 vaccine series (2022- season) 2022 01/04/2022, 07/01/2021, 01/01/2021, Additional history exists BMI (ht and wt on same day) for age 18+ 05/30/2023 05/29/2022 Chlamydia for age 16-24 05/30/2023 05/29/2022 Well Child Check for age 3-20 05/30/2023 05/29/2022 Depression screening for age 12+ 09/08/2023 09/07/2022, 09/05/2022, 05/29/2022 Influenza for age 9-49 11/25/2023 01/04/2022, 2020 Tetanus booster 01/24/2025 01/24/2015 Pneumococcal series for age 6-64 Aged Out 04/20/2004, 03/23/2003, 02/06/2003, Additional history exists No longer eligible based on patient's age to complete this topic Tdap Completed 01/24/2015 HPV series for age 9-26 Completed 04/26/2016, 01/24 HIV for age 15-65 Completed 05/29/2022 Hepatitis C screening for age 18-79 Completed 05/29/2022 Meningococcal series for age 11-21 Aged Out No longer eligible based on patient's age to complete this topic Procedures Procedure Name Priority Date/Time Associated Diagnosis Comments GC CHLAMYDIA TRACH PROBE Routine 05/29/2022 7:53 AM MANAGER MOTOR Screening examination for STD (sexually transmitted disease) LC HIV-1/O/2, 4TH GENERATION Routine 05/29/2022 7:47 AM MANAGER MOTOR Screening for HIV (human immunodeficiency virus) LC HCV ANTIBODY RFX TO QUANT PCR Routine 05/29/2022 7:47 AM MANAGER MOTOR Encounter for hepatitis C screening test for low risk patient from Last 3 Months or Most Recently Relevant to Health Maintenance Results * GC & CHLAMYDIA DNA PCR [[id number]] (05/29/2022 7:53 AM MANAGER MOTOR) CHLAMYDIA PROBE Negative 7:17 PM MANAGER MOTOR [facility] N GONORRHOEAE PROBE Negative 05/29/2022 7:17 PM MANAGER MOTOR [facility] Other URINE SPECIMEN / Unknown Non-Blood / Unknown 05/29/2022 7:53 AM MANAGER MOTOR 05/29/2022 7:53 AM MANAGER MOTOR [facility] [address] [place] [address], * LC HCV ANTIBODY RFX TO QUANT PCR (05/29/2022 7:47 AM MANAGER MOTOR) HCV Ab Non Reactive Non Reactive 05/31/2022 10:06 PM MANAGER MOTOR [facility] Blood BLOOD SPECIMEN / Unknown Venipuncture / Unknown 05/29/2022 7:47 AM MANAGER MOTOR 05/29/2022 7:47 AM MANAGER MOTOR Narrative [facility] - 05/31/2022 10:06 PM MANAGER MOTOR Performed at: ??[address] ??[id number] Shaper Setter: Tim Alamo MD, Phone: ??[phone] [facility] Performing Organization Address [facility] Co de Phone Number [facility] ([facility]) [address] [place] [id number], * HIV-1/O/2, 4TH GENERATION (05/29/2022 7:47 AM MANAGER MOTOR) Pathologist [facility] HIV Scr 4th Gen Non Reactive Non Reactive 05/31/2022 10:07 PM MANAGER MOTOR [facility] ([facility]) Comment: HIV Negative HIV-1/HIV-2 antibodies and HIV-1 p24 antigen were NOT detected. There is no laboratory evidence of HIV infection. Blood BLOOD SPECIMEN / Unknown Venipuncture / Unknown 05/29/2022 7:47 AM MANAGER MOTOR 05/29/2022 7:47 AM MANAGER MOTOR Narrative [facility] ([facility]) - 05/31/2022 10:07 PM MANAGER MOTOR Performed at: ??[address] ??[id number] Shaper Setter: Tim Alamo MD, Phone: ??[phone] [facility] Performing Organization Address [facility]/ZIP Co de Phone Number [facility] ([facility]) [address] [place] [address], from Last 3 Months or Most Recently Relevant to Health Maintenance Care Teams Twister Tender Paper Relationship Specialty Start Date End Date Na Naik PCP - General 05/18/22
[2023-07-06 19:57] LABS: Chlamydia DNA Amplified* NOT DETECTED (No Detected); GC DNA Amplified* NOT DETECTED (No Detected)
== END 2023-07-06 15:15 | disposition home or self-care (01) ==
LOC: NFLDREF 15:14
PROVIDERS: PCP Family Medicine; Visit Provider Registered Nurse
DX: Z11.3 Encounter for screening for infections with a predominantly sexual mode of transmission (principal)
CPT/HCPCS: 87491; 87591

== ENCOUNTER 2023-07-10 09:49 | Emergency (ER) | payer MEDICAID, SELFPAY ==
[2023-07-10 09:54] VITALS: BP 120/74; PULSE 78; RESP 14; TEMP 36.5; O2SAT 99; BMI 32.8
--- NOTE | 2023-07-10 10:02 | ED.SKABFB ---
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 2 days ago she also noticed a little left breast lump right along the areola. She has had no breast discharge. This area is really not painful. She does have underlying hidradenitis suppurativa. She has had no fevers or chills. She is on contraceptives, has an IUD. MD complaint: abscess/boil Tetanus up to date: yes Related Data Previous Rx's Medication Instructions Recorded lorazepam 0.5 mg tablet 0.5 - 1 mg (1 - 2 x 0.5 mg) PO 03/09/23 QDAY PRN anxiety #10 tabs metformin 500 mg tablet 500 mg PO QDAY #90 tabs 03/09/23 fluoxetine 40 mg capsule 40 mg PO QDAY #60 caps 05/23/23 ferrous sulfate 325 mg (65 mg 325 mg PO DAILY #90 tabs 07/09/23 iron) tablet (FeroSul) doxycycline monohydrate 100 mg 100 mg PO BID #14 tabs 07/10/23 tablet ketorolac 10 mg tablet 10 mg PO Q6H PRN pain #20 tabs 07/10/23 tramadol 50 mg tablet 50 mg PO Q8H PRN pain #6 tabs 07/10/23 Allergies Allergy/AdvReac Type Severity Reaction Status Date / Time faustino AdvReac Intermediate Rash Uncoded 07/06/23 14:43 Review of Systems Narrative: As per HPI. PFSH PFS Medical History Generalized anxiety disorder ?F41.1 - Generalized anxiety disorder (ICD-10) Obesity (BMI 30.0-34.9) ?E66.9 - Obesity, unspecified (ICD-10) Iron (Fe) deficiency anemia ?D50.9 - Iron deficiency anemia, unspecified (ICD-10) Anxiety (~01/05/23) ?F41.9 - Anxiety disorder, unspecified (ICD-10) Hidradenitis suppurativa ?L73.2 - Hidradenitis suppurativa (ICD-10) PCOS (polycystic ovarian syndrome) ?E28.2 - Polycystic ovarian syndrome (ICD-10) Surgical History Encounter for IUD insertion (~12/2022) ?Z30.430 - Encounter for insertion of intrauterine contraceptive device (ICD-10) No history of previous surgery Family History Mother Diabetes Father Diabetes Alcohol dependence Uncle FH: mental illness Social History Narrative: Single, [employer] student of psychology/ culture/neuro science. Born in [place] live the [facility] and [place] [employer] Exercise 3 times a week weight 60 minutes, dance 30 minutes, incline walking on treadmill 30 minutes Nonsmoker Rare alcohol use, no drugs [employer] student. From [facility]. Nonsmoker, no alcohol use, no illicit drug use Smoking Status: Never smoker Do you use any of these nicotine containing products: None Second hand tobacco smoke exposure: No How often do you have a drink containing alcohol: never How often do you have six or more drinks on one occasion: Never AUDIT-C Alcohol total score: 0 Non-prescribed substance use: denies use Little interest or pleasure in doing things: nearly every day Feeling down, depressed, or hopeless: not at all service: No Exam Const: Vital Signs, click to edit/add: Vital Signs - 24 hr 07/10/23 09:54 Temperature 97.7 F Pulse Rate [Pulse Oximeter] 78 Respiratory Rate 14 Blood Pressure [Ri ght Upper Arm] 120/74 Pulse Oximetry 99 Oxygen Delivery Me thod Room Air Patient is alert, interactive, no apparent distress. CV regular rate rhythm, no murmur. Left breast visualize, no overlying skin changes, nipple and areola look normal. No nipple discharge. Right at about a 9 o'clock to 10 o'clock position along the edge of the areola, feel a small subcutaneous nodular area less than 1 cm in size. It is firm, nontender. Does not feel fluctuant. In patient's perineal area along the medial buttocks on either side there are lesions of the skin, the left side is fluctuant, very tender, at least feels like it is a couple cm in size, patient does not tolerate palpation very well which does make it difficult to completely assess. Juxtaposed right on the other side is a smaller firm less than 1 cm lesion which patient states is not that painful. Both of these areas have central overlying scars, does sound as if they have both been opened before. The right side is not really bothering her and is not fluctuant but the left side is most definitely fluctuant an abscessed. Patient consent is obtained for incision and drainage. Documenting provider has reviewed patient's vital signs: yes Course Reevaluation(s) Time of Reevaluation #1: 10:32 Reevaluation #1: Completed incision and drainage of patient's right inner left buttock wound. She had an old scar in this area, this was the area over central fluctuance. I injected 2 mL of 1% lidocaine with epinephrine locally and into the tissue. An 18 gauge needle was then placed in the center of this, aspirated back about 2 mL of mucopurulent bloody fluid. Over the area of aspiration, I placed a approximately 0.6 linear opening in the skin which was congruent with the previous scar. A bit more mucopurulent fluid was expressed. The cavity was flushed with sterile saline. Patient tolerated procedure well, no immediate complications. Minimal bleeding. We will send a culture. Time of Reevaluation #2: 10:51 Vital Signs Vital signs: Initial Vital Signs Temperature 97.7 F 07/10/23 09:54 Temperature Source Temporal Artery Scan 07/10/23 09:54 Pulse Rate 78 07/10/23 09:54 Pulse Rhythm Regular 07/10/23 09:54 Respiratory Rate 14 07/10/23 09:54 Blood Pressure 120/74 07/10/23 09:54 Blood Pressure Mean 89 07/10/23 09:54 Blood Pressure Position Sitting 07/10/23 09:54 Pulse Oximetry 99 07/10/23 09:54 Oxygen Delivery Method Room Air 07/10/23 09:54 Vital Signs Temperature 97.7 F 07/10/23 09:54 Pulse Rate 78 07/10/23 09:54 Respiratory Rate 14 07/10/23 09:54 Blood Pressure 120/74 07/10/23 09:54 Pulse Oximetry 99 07/10/23 09:54 Oxygen Delivery Method Room Air 07/10/23 09:54 Temperature 97.7 F 07/10/23 09:54 Pulse Rate 78 07/10/23 09:54 Respiratory Rate 14 07/10/23 09:54 Blood Pressure 120/74 07/10/23 09:54 Pulse Oximetry 99 07/10/23 09:54 Oxygen Delivery Method Room Air 07/10/23 09:54 Discharge Plan Discharge Clinical Impression: Breast lump in female, Hidradenitis suppurativa, Abscess of buttock, left Patient Disposition: Home, Self-Care Condition: Stable Instructions: Abscess (ED), Hidradenitis Suppurativa (ED) Additional Instructions: Start antibiotic as soon as possible, take as prescribed. Do recommend following with Dermatology for your hidradenitis suppurativa. If the left breast lesion is not going down with treatment with antibiotic, you will need to follow up in clinic and get a left breast ultrasound scheduled. The left breast lesions should completely resolve with the antibiotics and if it does not, breast ultrasound needs to be done. Left breast ultrasound can be ordered through clinic if needed. Can use the tramadol per prescription for severe pain, this is a narcotic and need to review the patient Education Materials. I have written for Toradol which she can use per prescription, this is an anti-inflammatory. Once the Toradol is gone, can transition back to ibuprofen. You can always use underlying Tylenol 1000 mg 3 times a day baseline for pain. I understand that Tylenol may not be completely sufficient on its own for pain management for you but it may augment with these other medicines and do recommend you using this baseline. Activity Level: Activity as Tolerated Prescriptions: New doxycycline monohydrate 100 mg tablet 100 mg PO BID Qty: 14 0RF tramadol 50 mg tablet 50 mg PO Q8H PRN (Reason: pain) Qty: 6 0RF ketorolac 10 mg tablet 10 mg PO Q6H PRN (Reason: pain) Qty: 20 0RF Rx Instructions: maximum total duration of 5 days from all oral, intranasal, or parenteral formulations No Action metformin 500 mg tablet 500 mg PO QDAY Qty: 90 1RF lorazepam 0.5 mg tablet 0.5 - 1 mg PO QDAY PRN (Reason: anxiety) Qty: 10 0RF fluoxetine 40 mg capsule 40 mg PO QDAY Qty: 60 0RF ferrous sulfate [FeroSul] 325 mg (65 mg iron) tablet 325 mg PO DAILY Qty: 90 0RF Follow Up/Referrals: Eleonora Luna MD [Primary Care Provider] - Stand Alone Forms: IM5 Info Instructions
--- OUTSIDE RECORDS SUMMARY | 2023-07-10 10:58 | XMS_ITS | Clinical Summary ---
Author Name Unknown Organization [employer] [facility] [employer] [facility] Address [place], [place] [address] Care Team Providers Care Hall Manager Name Role Phone [facility] Primary Care Provider Unavail [...] CHLAMYDIA TRACH PROBE Routine 05/29/2022 7:53 AM ICT SUPPORT TECHNICIANS Screening examination for STD (sexually transmitted disease) LC HIV-1/O/2, 4TH GENERATION Routine 05/29/2022 7:47 AM ICT SUPPORT TECHNICIANS Screening for HIV (human immunodeficiency virus) LC HCV ANTIBODY RFX TO QUANT PCR Routine 05/29/2022 7:47 AM ICT SUPPORT TECHNICIANS Encounter for hepatitis C screening test for low risk patient from Last 3 Months or Most Recently Relevant to Health Maintenance Results * GC & CHLAMYDIA DNA PCR [[id number]] (05/29/2022 7:53 AM ICT SUPPORT TECHNICIANS) CHLAMYDIA PROBE Negative 7:17 PM ICT SUPPORT TECHNICIANS [facility] N GONORRHOEAE PROBE Negative 05/29/2022 7:17 PM ICT SUPPORT TECHNICIANS [facility] Other URINE SPECIMEN / Unknown Non-Blood / Unknown 05/29/2022 7:53 AM ICT SUPPORT TECHNICIANS 05/29/2022 7:53 AM ICT SUPPORT TECHNICIANS Beena NAVARRO MICROBIOLOGY [facility] [address] [place] [address], * LC HCV ANTIBODY RFX TO QUANT PCR (05/29/2022 7:47 AM ICT SUPPORT TECHNICIANS) HCV Ab Non Reactive Non Reactive 05/31/2022 10:06 PM ICT SUPPORT TECHNICIANS [facility] ([facility]) Blood BLOOD SPECIMEN / Unknown Venipuncture / Unknown 05/29/2022 7:47 AM ICT SUPPORT TECHNICIANS 05/29/2022 7:47 AM ICT SUPPORT TECHNICIANS Narrative [facility] ([facility]) - 05/31/2022 10:06 PM ICT SUPPORT TECHNICIANS Performed at: ??[address] ??[id number] Solid Waste Truck Driver: Tim Alamo MD, Phone: ??[phone] Be[facility] Performing Organization Address [facility] Co de Phone Number [facility] ([facility]) [address] [place] [id number], * HIV-1/O/2, 4TH GENERATION (05/29/2022 7:47 AM ICT SUPPORT TECHNICIANS) Pathologist [facility] HIV Scr 4th Gen Non Reactive Non Reactive 05/31/2022 10:07 PM ICT SUPPORT TECHNICIANS [facility] ([facility]) Comment: HIV Negative HIV-1/HIV-2 antibodies and HIV-1 p24 antigen were NOT detected. There is no laboratory evidence of HIV infection. Blood BLOOD SPECIMEN / Unknown Venipuncture / Unknown 05/29/2022 7:47 AM ICT SUPPORT TECHNICIANS 05/29/2022 7:47 AM ICT SUPPORT TECHNICIANS Narrative [facility] ([facility]) - 05/31/2022 10:07 PM ICT SUPPORT TECHNICIANS Performed at: ??[address] ??[id number] Solid Waste Truck Driver: Tim Alamo MD, Phone: ??[phone] [facility] Performing Organization Address [facility]/ZIP Co de Phone Number [facility] ([facility]) [address] [place] [address], from Last 3 Months or Most Recently Relevant to Health Maintenance Care Teams Hall Manager Relationship Specialty Start Date End Date Na Naik PCP - General 05/18/22
[2023-07-10] MEDS: KETOROLAC 30 MG/ML inj IM (11:03)
== END 2023-07-10 11:05 | disposition home or self-care (01) ==
LOC: ED 10:56
PROVIDERS: Emergency Provider Family Medicine; PCP Family Medicine
DX: L02.31 Cutaneous abscess of buttock (principal); L73.2 Hidradenitis suppurativa; N63.20 Unspecified lump in the left breast, unspecified quadrant
CPT/HCPCS: 10060; 87070; 87076; 87181; 96372; 99283; 99284; J1885

== ENCOUNTER 2023-07-20 14:29 | Outpatient (CLI) | payer MEDICAID, SELFPAY ==
--- OUTSIDE RECORDS SUMMARY | 2023-07-20 14:31 | XMS_ITS | Clinical Summary ---
Author Name Unknown Organization [employer] [facility] Address [place], [place] [address] Care Team Providers Care Workday Senior Associate Name Role Phone [facility] Primary Care Provider Unavail able Allergies No [...] once daily. 90 Tablet 3 09/05/2022 Active Encounters Date Type Department Care Team Description 07/16/2023 Lab Requisition [facility] [phone] Jacqueline Yang MD from Last 3 Months Immunizations Name Administration Dates Next Due DTaP [...] Date Last Done Comments COVID-19 vaccine series ( season) 2022 01/04/2022, 07/01/2021, 01/01/2021, Additional history [...] Procedure Name Priority Date/Time Associated Diagnosis Comments REFERRAL ID/SUSC,ANAEROBE Routine 07/10/2023 10:34 AM CDT GC CHLAMYDIA TRACH PROBE Routine 05/29/2022 7:53 AM WEIGHT TRAINER Screening examination for STD (sexually transmitted disease) LC HIV-1/O/2, 4TH GENERATION Routine 05/29/2022 7:47 AM WEIGHT TRAINER Screening for HIV (human immunodeficiency virus) LC HCV ANTIBODY RFX TO QUANT PCR Routine 05/29/2022 7:47 AM WEIGHT TRAINER Encounter for hepatitis C screening test for low risk patient from Last 3 Months or Most Recently Relevant to Health Maintenance Results * (ABNORMAL) REFERRAL ID/SUSC,ANAEROBE (07/10/2023 10:34 AM CDT) CULTURE RESULT(A) 07/19/2023 2:05 PM CDT [facility] CULTURE Bacteroides ovatus 07/19/2023 2:05 PM CDT [facility] Other Client Collect / Unknown 07/10/2023 10:34 AM CDT 07/16/2023 4:10 PM CDT Narrative Organism Antibiotic Method Susceptibility Bacteroides ovatus PENICILLIN 32: R Bacteroides ovatus CLINDAMYCIN 4: I Bacteroides ovatus CEFOXITIN 32: I Bacteroides ovatus IMIPENEM 0.12: S Bacteroides ovatus METRONIDAZOLE 1: S Jacqueline Yang MD MICROBIOLOG[facility] [address] [place] [address], * GC & CHLAMYDIA DNA PCR [[id number]] (05/29/2022 7:53 AM WEIGHT TRAINER) CHLAMYDIA PROBE Negative 7:17 PM WEIGHT TRAINER [facility] N GONORRHOEAE PROBE Negative 05/29/2022 7:17 PM WEIGHT TRAINER [facility] Other URINE SPECIMEN / Unknown Non-Blood / Unknown 05/29/2022 7:53 AM WEIGHT TRAINER 05/29/2022 7:53 AM WEIGHT TRAINER Beena NAVARRO MICROBIOLOGY [facility] [address] [place] [address], * LC HCV ANTIBODY RFX TO QUANT PCR (05/29/2022 7:47 AM WEIGHT TRAINER) HCV Ab Non Reactive Non Reactive 05/31/2022 10:06 PM WEIGHT TRAINER [facility]) Blood BLOOD SPECIMEN / Unknown Venipuncture / Unknown 05/29/2022 7:47 AM WEIGHT TRAINER 05/29/2022 7:47 AM WEIGHT TRAINER Narrative [facility]) - 05/31/2022 10:06 PM WEIGHT TRAINER Performed at: ??[address] - [address] ??[id number] Ophthalmology Technician: Tim Alamo MD, Phone: ??[phone] Beena NAVARRO LABORAT[facility] ([facility]) [address] [place] [address], * LC HIV-1/O/2, 4TH GENERATION (05/29/2022 7:47 AM WEIGHT TRAINER) HIV Scr 4th Gen Non Reactive Non Reactive 05/31/2022 10:07 PM WEIGHT TRAINER [facility] ([facility]) Comment: HIV Negative HIV-1/HIV-2 antibodies and HIV-1 p24 antigen were NOT detected. There is no laboratory evidence of HIV infection. Blood BLOOD SPECIMEN / Unknown Venipuncture / Unknown 05/29/2022 7:47 AM WEIGHT TRAINER 05/29/2022 7:47 AM WEIGHT TRAINER Narrative [facility] ([facility]) - 05/31/2022 10:07 PM WEIGHT TRAINER Performed at: ??[address] - [address] ??[id number] Ophthalmology Technician: Tim Alamo MD, Phone: ??[phone] Be[facility]O [facility] ([facility]) [address] [place] [address] from Last 3 Months or Most Recently Relevant to Health Maintenance Care Teams Workday Senior Associate Relationship Specialty Start Date End Date Na Naik PCP - General 05/18/22
--- NOTE | 2023-07-20 15:00 | US_ITS ---
Patient: GRANT HAYWOOD Facility:?[facility] Patient ID:?[id number] Site Patient ID:?[id number] Site :?2002 Study:?US-Pelvis PELVIS TA & TV-07/20/2023 3:29:42 PM Ordering Physician:?NICK DOOLEY CNP Final Report: INDICATION: Dysmenorrhea COMPARISON: Pelvic ultrasound from 02/10/2023. FINDINGS: Transvaginal and transabdominal ultrasound examination of the female pelvis was performed. Initial examination is performed with transabdominal technique and transvaginal technique is used for better visualization of the pelvic structures. The uterus is anteverted with no evidence of mass. It measures 8.2 x 3.2 x 4.3 cm. The endometrial lining is prominently increased in thickness at 18 mm. It was previously seen to be mildly thickened at 10 millimeters. An intrauterine device is in satisfactory position in the superior uterine cavity. The previously seen complex left ovarian cyst has completely resolved. The ovaries are normal in appearance and size, the right measuring 4.3 x 2.9 x 3.4 cm and the left measuring 4.2 x 1.8 x 3.1 cm. There is normal color and pulse doppler flow in both ovaries. There is a trace amount of free fluid, probably physiologic. IMPRESSION: 1. Moderate thickening of the endometrial lining which is nonspecific and may be related to the patient`s menstrual cycle. 2. Satisfactory positioning of a T-shaped intrauterine device. 3. Resolution of previously seen complex left ovarian cyst. Normal appearance of the ovaries. Dictated by Philip Mcpherson MD @ 07/21/2023 11:09:29 PM Signed by:?Philip Mcpherson MD @07/21/2023 11:09:29 PM (Electronic Signature)
== END 2023-07-20 14:30 | disposition home or self-care (01) ==
LOC: US 14:29
PROVIDERS: PCP Family Medicine; Visit Provider Registered Nurse
DX: N94.6 Dysmenorrhea, unspecified (principal); R93.89 Abnormal findings on diagnostic imaging of other specified body structures; N83.202 Unspecified ovarian cyst, left side
CPT/HCPCS: 76830; 76856; 93976

== ENCOUNTER 2023-07-27 10:18 | Outpatient (CLI) | payer MEDICAID, SELFPAY ==
--- OUTSIDE RECORDS SUMMARY | 2023-07-27 10:21 | XMS_ITS | Clinical Summary ---
Author Name Unknown Organization [employer] [facility] Address [place], [place] [address] Care Team Providers Care Lead Ramp Agent Name Role Phone [place] [facility] Primary Care Provider Unavail able Allergies [...] Department Care Team Description 07/16/2023 Lab Requisition [facility] [phone] Jacqueline Yang MD from Last 3 Months [...] CHLAMYDIA TRACH PROBE Routine 05/29/2022 7:53 AM SUGAR REFINER Screening examination for STD (sexually transmitted disease) LC HIV-1/O/2, 4TH GENERATION Routine 05/29/2022 7:47 AM SUGAR REFINER Screening for HIV (human immunodeficiency virus) LC HCV ANTIBODY RFX TO QUANT PCR Routine 05/29/2022 7:47 AM SUGAR REFINER Encounter for hepatitis C screening test for low risk patient from Last 3 Months or Most Recently Relevant to Health Maintenance Results * (ABNORMAL) REFERRAL ID/SUSC,ANAEROBE (07/10/2023 10:34 AM CDT) CULTURE RESULT(A) 07/19/2023 2:05 PM CDT [facility] CULTURE Bacteroides ovatus 07/19/2023 2:05 PM CDT [facility] Other Client Collect / Unknown 07/10/2023 10:34 AM CDT 07/16/2023 4:10 PM CDT Narrative Organism Antibiotic Method Susceptibility Bacteroides ovatus PENICILLIN 32: R Bacteroides ovatus CLINDAMYCIN 4: I Bacteroides ovatus CEFOXITIN 32: I Bacteroides ovatus IMIPENEM 0.12: S Bacteroides ovatus METRONIDAZOLE 1: S Jacqueline Yang MD [facility] [address] [place] [address], * GC & CHLAMYDIA DNA PCR [[id number]] (05/29/2022 7:53 AM SUGAR REFINER) CHLAMYDIA PROBE Negative 7:17 PM SUGAR REFINER [facility] N GONORRHOEAE PROBE Negative 05/29/2022 7:17 PM SUGAR REFINER [facility] Other URINE SPECIMEN / Unknown Non-Blood / Unknown 05/29/2022 7:53 AM SUGAR REFINER 05/29/2022 7:53 AM SUGAR REFINER Beena NAVARRO MICROBIOLOGY [facility] [address] [place] [address], * LC HCV ANTIBODY RFX TO QUANT PCR (05/29/2022 7:47 AM SUGAR REFINER) HCV Ab Non Reactive Non Reactive 05/31/2022 10:06 PM SUGAR REFINER [facility] Blood BLOOD SPECIMEN / Unknown Venipuncture / Unknown 05/29/2022 7:47 AM SUGAR REFINER 05/29/2022 7:47 AM SUGAR REFINER Narrative [facility] - 05/31/2022 10:06 PM SUGAR REFINER Performed at: ??[address] - [address] ??[id number] Maxillofacial Prosthetics Dentist: Tim Alamo MD, Phone: ??[phone] Beena NAVARRO LABORATORY [facility] ([facility]) [address] [place] [address], * LC HIV-1/O/2, 4TH GENERATION (05/29/2022 7:47 AM SUGAR REFINER) HIV Scr 4th Gen Non Reactive Non Reactive 05/31/2022 10:07 PM SUGAR REFINER [facility] ([facility]) Comment: HIV Negative HIV-1/HIV-2 antibodies and HIV-1 p24 antigen were NOT detected. There is no laboratory evidence of HIV infection. Blood BLOOD SPECIMEN / Unknown Venipuncture / Unknown 05/29/2022 7:47 AM SUGAR REFINER 05/29/2022 7:47 AM SUGAR REFINER Narrative [facility] ([facility]) - 05/31/2022 10:07 PM SUGAR REFINER Performed at: ??[address] - [address] ??[id number] Maxillofacial Prosthetics Dentist: Tim Alamo MD, Phone: ??[phone] Be[facility]O LABORAT[facility] ([facility]) [address] [place] [address] from Last 3 Months or Most Recently Relevant to Health Maintenance Care Teams Lead Ramp Agent Relationship Specialty Start Date End Date Na Naik PCP - General 05/18/22
== END 2023-07-27 10:19 | disposition home or self-care (01) ==
PROVIDERS: PCP Family Medicine; Visit Provider Family Medicine
DX: D50.9 Iron deficiency anemia, unspecified (principal); Z13.220 Encounter for screening for lipoid disorders
CPT/HCPCS: 80061; 82728

== ENCOUNTER 2023-12-28 15:23 | Outpatient (CLI) | payer MEDICAID, SELFPAY ==
--- OUTSIDE RECORDS SUMMARY | 2023-12-28 15:26 | XMS_ITS | Clinical Summary ---
Author Organization [facility] Address [place], [place] [address] Care Team Providers Care Tire Specialist Name Role Phone [facility] Primary Care Pr ovider Allergies No known active allergies Medications Medication [...] mg Extended-Release tabletIndications:PC OS (polycystic ovarian syndrome) TAKE 1 TABLET(500 MG) BY MOUTH EVERY DAY 90 Tablet 10/08/2023 Active Encounters Date Type Department Care Team Description 10/05/2023 Refill [facility] [address] [place] [address] Beena Rodriguez PA Refill Request (Metformin) from Last 3 Months Immunizations Name Administration [...] Health Maintenance Due Date Last Done Comments BMI (ht and wt on same day) for age 18+ 05/30/2023 05/29/2022 Chlamydia for age 16-24 05/30/2023 05/29/2022 Depression screening for age 12+ 09/08/2023 09/07/2022, 09/05/2022, 05/29/2022 Pap test for age 21-65 11/04/2023 COVID-19 vaccine series ( season) 2023 01/04/2022, 07/01/2021, 01/01/2021, Additional history exists Influenza for age 9-49 11/25/2023 01/04/2022, 2020 [...] CHLAMYDIA TRACH PROBE Routine 05/29/2022 7:53 AM OFFAL BALER Screening examination for STD (sexually transmitted disease) LC HIV-1/O/2, 4TH GENERATION Routine 05/29/2022 7:47 AM OFFAL BALER Screening for HIV (human immunodeficiency virus) LC HCV ANTIBODY RFX TO QUANT PCR Routine 05/29/2022 7:47 AM OFFAL BALER Encounter for hepatitis C screening test for low risk patient from Last 3 Months or Most Recently Relevant to Health Maintenance Results * GC & CHLAMYDIA DNA PCR [[id number]] (05/29/2022 7:53 AM OFFAL BALER) CHLAMYDIA PROBE Negative 7:17 PM OFFAL BALER [facility] N GONORRHOEAE PROBE Negative 05/29/2022 7:17 PM OFFAL BALER [facility] Other URINE SPECIMEN / Unknown Non-Blood / Unknown 05/29/2022 7:53 AM OFFAL BALER 05/29/2022 7:53 AM OFFAL BALER Beena NAVARRO MICROBIOLOGY [facility] [address] [place] [address], [place] * LC HCV ANTIBODY RFX TO QUANT PCR (05/29/2022 7:47 AM OFFAL BALER) HCV Ab Non Reactive Non Reactive 05/31/2022 10:06 PM OFFAL BALER [facility] TEST[facility] (CET) Blood BLOOD SPECIMEN / Unknown Venipuncture / Unknown 05/29/2022 7:47 AM OFFAL BALER 05/29/2022 7:47 AM OFFAL BALER Narrative [facility] TEST[facility] (CET) - 05/31/2022 10:06 PM OFFAL BALER Performed at: ??01 - [facility] [employer] [place] [address] ??[id number] Metal Coater: Tim Alamo MD, Phone: ??[phone] Beena NAVARRO LABORATORY Performing Organization Address City/Special Care Hospital/ZIP Co de Phone Number [facility] TEST[facility] ([facility]) [facility] [place] [address], * LC HIV-1/O/2, 4TH GENERATION (05/29/2022 7:47 AM OFFAL BALER) Pathologist [facility] [place] HIV Scr 4th Gen Non Reactive Non Reactive 05/31/2022 10:07 PM OFFAL BALER FOR ESOTERIC TESTING (CET) Comment: HIV Negative HIV-1/HIV-2 antibodies and HIV-1 p24 antigen were NOT detected. There is no laboratory evidence of HIV infection. Blood BLOOD SPECIMEN / Unknown Venipuncture / Unknown 05/29/2022 7:47 AM OFFAL BALER 05/29/2022 7:47 AM OFFAL BALER Narrative FOR ESOTERIC TESTING (CET) - 05/31/2022 10:07 PM OFFAL BALER Performed at: ??01 - [facility] [employer] [place], [place] ??[id number] Metal Coater: Tim Alamo MD, Phone: ??[phone] Beena NAVARRO LABORATORY [facility] (CET) [address] [place], [place] [id number], from Last 3 Months or Most Recently Relevant to Health Maintenance Care Teams Tire Specialist Relationship Specialty Start Date End Date Clinic, [facility] [address] [place] [address] PCP - General 11/05/23
== END 2023-12-28 15:24 | disposition home or self-care (01) ==
PROVIDERS: PCP Family Medicine; Visit Provider Family Medicine
DX: D50.9 Iron deficiency anemia, unspecified (principal); E66.9 Obesity, unspecified; F41.9 Anxiety disorder, unspecified; Z11.3 Encounter for screening for infections with a predominantly sexual mode of transmission
CPT/HCPCS: 80061; 82728; 86592; 86703; 86803; 87340; 87491; 87591

== ENCOUNTER 2024-01-11 15:46 | Emergency (ER) | payer MEDICAID, SELFPAY ==
[2024-01-11 15:59] VITALS: BP 124/81; PULSE 78; RESP 18; TEMP 37; O2SAT 99; BMI 32.3
--- NOTE | 2024-01-11 16:14 | ED_ITS ---
HPI - Dizziness General Time Seen by Provider: 16:14 Date Seen: 01/11/24 Chief Complaint: Dizziness/Vertigo Stated Complaint: dizzy, disoriented Time Seen by Provider: 01/11/24 16:14 Source: patient Mode of arrival: ambulatory Limitations: no limitations History of Present Illness HPI Narrative: Makayla is a very pleasant 23-year-old female [place] student who comes here for evaluation regarding lightheadedness. Yesterday she had the onset of lightheadedness after lifting some items. She does think that the items were very heavy and thought perhaps it was a chemical smell that made her feel this way. She drinks some water had supper slapped and was feeling much better. Today when she was getting up and getting ready for school she got lightheaded again. This is not associated with visual changes, chest pain, shortness of breath, palpitations. She has not had this happen in the past. She does note a fullness in some mild ear discomfort on the left but attributed this to the COVID vaccination which did cause her ears to buzz. She denies any recent illness cough cold congestion and sore throat. She notes that she has been very tired but she states she feels that this is normal for her. She is sexually active but has not IUD in place and uses condoms. She is currently menstruating and her period was late but she attributes this to PCOS. She does have a history of anemia with her last hemoglobin check in July of this year. She continues on iron supplements. Patient denies cough, shortness of breath. She she was worried about walking to class feeling this lightheaded. Her friend who is with her asks about the possibility of anxiety. Related Data Previous Rx's ?Medication ?Instructions ?Recorded lorazepam 0.5 mg tablet 0.5 - 1 mg (1 - 2 x 0.5 mg) PO 07/10/23 QDAY PRN anxiety #10 tabs ferrous sulfate 325 mg (65 mg 325 mg PO DAILY #90 tabs 07/27/23 iron) tablet (FeroSul) fluoxetine 40 mg capsule 40 mg PO QDAY #90 caps 07/27/23 metformin 500 mg tablet 500 mg PO QDAY #90 tabs 07/27/23 trazodone 50 mg tablet 50 mg PO QHS #90 tabs 12/28/23 Allergies Allergy/AdvReac Type Severity Reaction Status Date / Time faustino AdvReac Intermediate Rash Uncoded 12/28/23 14:56 Review of Systems Status of ROS: Reports: 10 or more systems reviewed and unremarkable except as noted in History and below Const: Reports: fatigue; Denies: fever or chills Eyes: Denies: change in vision or blurry vision ENMT: Denies: throat pain, throat swelling, nasal discharge or nasal congestion Cardio: Denies: chest pain, palpitations, swelling of feet/ankles, lightheadedness or shortness of breath with exertion Resp: Denies: shortness of breath or cough GI: Denies: abdominal pain, nausea, vomiting or diarrhea : Denies: painful urination or urinary frequency Musculo: Denies: back pain Integ/Breast: Denies: rash or itching Endo: Reports: fatigue Allergy/Immuno: Denies: throat swelling PFSH PFS Medical History Ankle pain, right ?M25.571 - Pain in right ankle and joints of right foot (ICD-10) Generalized anxiety disorder ?F41.1 - Generalized anxiety disorder (ICD-10) Obesity (BMI 30.0-34.9) ?E66.9 - Obesity, unspecified (ICD-10) Iron (Fe) deficiency anemia ?D50.9 - Iron deficiency anemia, unspecified (ICD-10) Anxiety (~01/05/23) ?F41.9 - Anxiety disorder, unspecified (ICD-10) Hidradenitis suppurativa ?L73.2 - Hidradenitis suppurativa (ICD-10) PCOS (polycystic ovarian syndrome) ?E28.2 - Polycystic ovarian syndrome (ICD-10) Surgical History Encounter for IUD insertion (~12/2022) ?Z30.430 - Encounter for insertion of intrauterine contraceptive device (ICD- 10) No history of previous surgery Family History Mother Diabetes Father Diabetes Alcohol dependence Uncle FH: mental illness Social History Narrative: Single, [employer] student of psychology/ culture/neuro science. Born in [place] live the [facility] Exercise 3 times a week weight 60 minutes, dance 30 minutes, incline walking on treadmill 30 minutes Nonsmoker Rare alcohol use, no drugs [employer] student. From [employer]. Nonsmoker, no alcohol use, no illicit drug use What is your current living situation?: I presently have a place to live Problems where you live: no known problems In the past 12 months, utilities in danger of being shut off: no In past 12 months, lack of transportation kept you from medical appts, meetings, work, or getting things needed for daily living: yes In the past 12 mos, have been you worried that your food would run out before you had money to buy more?: sometimes true In the past 12 mos, the food you bought just didn't last and you didn't have money to buy more?: never true Smoking Status: Never smoker Do you use any of these nicotine containing products: None Second hand tobacco smoke exposure: No How often do you have a drink containing alcohol: never How often do you have six or more drinks on one occasion: Never AUDIT-C Alcohol total score: 0 Non-prescribed substance use: denies use How often does anyone, including family, friends and others, physically hurt you : never How often does anyone, including family, friends and others, insult or talk down to you: rarely How often does anyone, including family, friends and others, threaten you with harm: never How often does anyone, including family, friends and others, scream or curse at you: sometimes Little interest or pleasure in doing things: several days Feeling down, depressed, or hopeless: several days service: No Exam Narrative: Exam Narrative: Patient is alert and oriented. No acute distress. Very well-spoken young woman. Mentating normally. EOM is full and pupils equal round and reactive. Right TM within normal limits. There does appear to be is slight amount of fluid behind the left TM. It is not erythematous or bulging at this time. Neck is supple without lymphadenopathy. Face symmetrical. Eyebrow raise smile within normal limits. No lesions within the ear canals are on the face. Heart with regular rate and rhythm. No additional heart sounds or murmurs are noted. Lungs are clear bilaterally abdomen soft nontender. Lower extremities without edema there is no calf tenderness. Patient is moving extremities without difficulty. Modest increase in pulse rate from 70 for lying down to 87 while standing. Blood pres sure lying down 109 and standing up 130. Pulse oximetry normal. Const: Vital Signs, click to edit/add: Vital Signs - 24 hr 01/11/24 15:59 01/11/24 17:10 Temperature 98.6 F Pulse Rate [Right Pulse Oximeter] 78 Pulse Rate [orthos tatic lying Left P ulse Oximeter] 74 Pulse Rate [orthos tatic sitting Left Pulse Oximeter] 79 Pulse Rate [orthos tatic standing Lef t Pulse Oximeter] 87 Respiratory Rate 18 Blood Pressure [Ri ght Upper Arm] 124/81 Blood Pressure [or thostatic lying Ri ght Arm] 109/65 Blood Pressure [or thostatic sitting Right Arm] 115/76 Blood Pressure [or thostatic standing Right Arm] 130/87 Pulse Oximetry 99 Oxygen Delivery Me thod Room Air Documenting provider has reviewed patient's vital signs: yes Course Course ED Course: At this time differential diagnosis includes but is not limited to hypotension, anxiety, inner ear dysfunction, cardiac arrhythmia, COVID, strep, , UTI. This does appear to be positional. After patient is up for a while the sensation seems to improved. Reevaluation(s) Reevaluation #1: Laboratory studies are reassuring. She does have a hemoglobin of 10.8. No evidence of tachycardia, she is not orthostatic, normal white count and CRP. Normal electrolyte panel creatinine. Urinalysis without evidence of ketones or UTI. She is negative for COVID mono influenza RSV and strep. Vital Signs Vital signs: Initial Vital Signs Temperature 98.6 F 01/11/24 15:59 Temperature Source Temporal Artery Scan 01/11/24 15:59 Pulse Rate 78 01/11/24 15:59 Pulse Rhythm Regular 01/11/24 15:59 Pulse Strength 3+ Normal 01/11/24 15:59 Respiratory Rate 18 01/11/24 15:59 Blood Pressure 124/81 01/11/24 15:59 Blood Pressure Mean 95 01/11/24 15:59 Blood Pressure Position Sitting 01/11/24 15:59 Pulse Oximetry 99 01/11/24 15:59 Oxygen Delivery Method Room Air 01/11/24 15:59 Vital Signs Temperature 98.6 F 01/11/24 15:59 Pulse Rate 78 01/11/24 15:59 Respiratory Rate 18 01/11/24 15:59 Blood Pressure 124/81 01/11/24 15:59 Pulse Oximetry 99 01/11/24 15:59 Oxygen Delivery Method Room Air 01/11/24 15:59 Temperature 98.6 F 01/11/24 15:59 Pulse Rate 74 01/11/24 17:10 Respiratory Rate 18 01/11/24 15:59 Blood Pressure 109/65 01/11/24 17:10 Pulse Oximetry 99 01/11/24 15:59 Oxygen Delivery Method Room Air 01/11/24 15:59 MDM - Dizziness MDM Narrative Medical decision making narrative: 1. Lightheadedness-laboratory values all reassuring. The only abnormality today was some fluid behind the left TM. But there was no evidence of bulging. I did go back and do Hallpike maneuver and that is negative. EKG is reassuring with no evidence of arrhythmia, no evidence of dehydration, no evidence of infection or . Patient is given Zyrtec 10 mg p.o.. He if this does help would ask her to continue this medication every 24 hours. He if she has continued experiences would ask that she follow-up with ENT for further evaluation. If she is worsening would ask that she return to the emergency room. 2. Anemia-hemoglobin 10.8 today. Patient tells me that she has not been taking her iron has just resumed it. Would encourage her to continue to take this. 2. Disposition-home at this time. Return for worsening symptoms and as needed. 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 Medical Records Attestation: I reviewed the patient's medical records. Lab Data Attestation: I reviewed the patient's lab results. Labs: Lab Results 01/11/24 01/11/24 01/11/24 Range/Units 17:12 17:36 18:20 WBC 5.91 (4.50-11.00) K/uL RBC 4.42 (4.00-5.20) m/uL Hgb 10.8 L (12.0-16.0) gm/dL Hct 35.5 (33.0-51.0) % MCV 80 (80-100) fL MCH 24 L (26-34) pg MCHC 30 L (32-36) gm/dL RDW Coeff of Bill 16.5 H (11.5-15.5) % Plt Count 388 (140-440) K/uL Neut % (Auto) 61.7 (42.0-72.0) % Lymph % (Auto) 27.9 (20-44) % Wythe % (Auto) 9.1 (0.0-11.0) % Eos % (Auto) 0.8 (0.0-7.0) % Baso % (Auto) 0.3 (0.0-3.0) % Neut # (Auto) 3.64 (1.7-7.0) K/uL Lymph # (Auto) 1.65 (0.90-2.90) K/uL Wythe # (Auto) 0.50 (0.00-0.90) K/UL Eos # (Auto) 0.05 (0.00-0.50) K/uL Baso # (Auto) 0.02 (0.00-0.30) K/uL Abs Immat Gran (auto) 0.01 (0.00-0.30) K/uL Imm/Tot Granulo (auto) 0.2 % Sodium 137 (135-149) mmol/L Potassium 4.1 (3.6-5.1) mmol/L Chloride 105 (96-114) mmol/L Carbon Dioxide 23 (20-32) mmol/L Anion Gap 9 (7-15) mEq/L BUN 9 (5-24) mg/dL Creatinine 0.6 (0.5-1.5) mg/dL Estimated Creat Clear 138.85 Estimated GFR 131 ml/min Glucose 88 (60-115) mg/dL Calcium 9.1 (8.4-10.6) mg/dL Urine Color Yellow (Yellow) Urine Appearance Clear (Clear) Urine pH 8.5 (5.0-8.5) Ur Specific [place] 1.020 (1.000-1.030) Urine Protein Negative (Negative) Urine Glucose (UA) Negative (Negative) Urine Ketones Negative (Negative) Urine Blood Trace-intact A (Negative) Urine Nitrite Negative (Negative) Urine Bilirubin Negative (Negative) Urine Urobilinogen 0.2 (0.2-1.0) Ur Leukocyte Esterase Negative (Negative) Urine RBC 2-5 A (0-2) Urine WBC 0-2 (0-5) Ur Squamous Epith Cells None (None-Few) Urine Bacteria None (None) Urine HCG, Qual Negative (Negative) SARS-CoV-2 (PCR) Negative SARS-CoV-2 (Negative) Monoscreen Negative (Negative) Influenza Type A (PCR) Negative PCR FLU A (Negative) Influenza Type B (PCR) Negative PCR FLU B (Negative) RSV (PCR) Negative PCR RSV (Negative) Group A Strep DNA NOT DETECTED (Not Detectd) ECG Data Attestation: I personally reviewed and interpreted this ECG as follows: ECG interpretation date: 01/11/24 Interpretation: EKG by my read shows sinus rhythm at a rate of 74. No acute ST or T-wave pati nges. TX and QT intervals within normal limits . Discharge Plan Discharge Clinical Impression: Intermittent lightheadedness, Anemia Patient Disposition: Home, Self-Care Condition: Unchanged Additional Instructions: 1st dose of Zyrtec will be given to you tonight. If you feel better on this med ication continue 1 tablet every 24 hours. Recommend getting up slowly from sitting or lying down position. Continue your iron and stay well hydrated. A note for your Dieter's describing possible difficulty in your home work be provided to you. Return to the ER for worsening symptoms. For ongoing symptoms follow-up with ENT doctor Renetta. He sees patients at the [facility] [phone]. Prescriptions: No Action trazodone 50 mg tablet 50 mg PO QHS Qty: 90 1RF fluoxetine 40 mg capsule 40 mg PO QDAY Qty: 90 3RF metformin 500 mg tablet 500 mg PO QDAY Qty: 90 3RF lorazepam 0.5 mg tablet 0.5 - 1 mg PO QDAY PRN (Reason: anxiety) Qty: 10 0RF ferrous sulfate [FeroSul] 325 mg (65 mg iron) tablet 325 mg PO DAILY Qty: 90 3RF Follow Up/Referrals: Eleonora Luna MD [Primary Care Provider] - Stand Alone Forms: [facility], [facility] Info Instructions
[2024-01-11 17:10] VITALS: BP 109/65; BP 115/76; BP 130/87; PULSE 74; PULSE 79; PULSE 87
[2024-01-11 17:17] LABS: Basophils Absolute Auto 0.02 K/uL (0.00-0.30); Basophils Percent Auto 0.3 % (0.0-3.0); Eosinophils Absolute Auto 0.05 K/uL (0.00-0.50); Eosinophils Percent Auto 0.8 % (0.0-7.0); Hematocrit 35.5 % (33.0-51.0); Hemoglobin* 10.8 gm/dL (12.0-16.0); Immature Granulocytes Abs Auto 0.01 K/uL (0.00-0.30); Immature Granulocytes Pct Auto 0.2 %; Lymphocytes Absolute Auto 1.65 K/uL (0.90-2.90); Lymphocytes Percent Auto 27.9 % (20-44); Mean Corpuscular HGB Conc 30 gm/dL (32-36); Mean Corpuscular Hemoglobin 24 pg (26-34); Mean Corpuscular Volume 80 fL (80-100); Monocytes Percent Auto 9.1 % (0.0-11.0); Neutrophils Absolute Auto 3.64 K/uL (1.7-7.0); Neutrophils Percent Auto 61.7 % (42.0-72.0); Platelet Count* 388 K/uL (140-440); RDW Coefficient of Variation % 16.5 % (11.5-15.5); Red Blood Count 4.42 m/uL (4.00-5.20); White Blood Count* 5.91 K/uL (4.50-11.00)
[2024-01-11 17:20] LABS: Slide Review Reflex No
--- OUTSIDE RECORDS SUMMARY | 2024-01-11 17:21 | XMS_ITS | Clinical Summary ---
Author Organization [facility] Address [place], [place] [address] Care Team Providers Care Coil Maker Name Role Phone Clinic, [facility] Primary Care Pr ovider Allergies No known [...] MOUTH EVERY DAY 90 Tablet 10/08/2023 Active Immunizations Name Administration Dates Next Due [...] CHLAMYDIA TRACH PROBE Routine 05/29/2022 7:53 AM MEDICAL PRACTICE ASSISTANT Screening examination for STD (sexually transmitted disease) LC HIV-1/O/2, 4TH GENERATION Routine 05/29/2022 7:47 AM MEDICAL PRACTICE ASSISTANT Screening for HIV (human immunodeficiency virus) LC HCV ANTIBODY RFX TO QUANT PCR Routine 05/29/2022 7:47 AM MEDICAL PRACTICE ASSISTANT Encounter for hepatitis C screening test for low risk patient from Last 3 Months or Most Recently Relevant to Health Maintenance Results * GC & CHLAMYDIA DNA PCR [[id number]] (05/29/2022 7:53 AM MEDICAL PRACTICE ASSISTANT) CHLAMYDIA PROBE Negative 7:17 PM MEDICAL PRACTICE ASSISTANT [facility] N GONORRHOEAE PROBE Negative 05/29/2022 7:17 PM MEDICAL PRACTICE ASSISTANT [facility] Other URINE SPECIMEN / Unknown Non-Blood / Unknown 05/29/2022 7:53 AM MEDICAL PRACTICE ASSISTANT 05/29/2022 7:53 AM MEDICAL PRACTICE ASSISTANT Beena NAVARRO MICROBIOLOGY [facility] [address] [place] [address], [place] * HCV ANTIBODY RFX TO QUANT PCR (05/29/2022 7:47 AM MEDICAL PRACTICE ASSISTANT) HCV Ab Non Reactive Non Reactive 05/31/2022 10:06 PM MEDICAL PRACTICE ASSISTANT [facility] ([facility]) Blood BLOOD SPECIMEN / Unknown Venipuncture / Unknown 05/29/2022 7:47 AM MEDICAL PRACTICE ASSISTANT 05/29/2022 7:47 AM MEDICAL PRACTICE ASSISTANT Narrative [facility] ([facility]) - 05/31/2022 10:06 PM MEDICAL PRACTICE ASSISTANT Performed at: ??[address] ??[id number] Call Specialist: Tim Alamo MD, Phone: ??[phone] Beena NAVARRO LABORATORY Performing Organization Address [facility]/ZIP Co de Phone Number [facility] (CET) [address] [place] [id number], * HIV-1/O/2, 4TH GENERATION (05/29/2022 7:47 AM MEDICAL PRACTICE ASSISTANT) Pathologist [facility] HIV Scr 4th Gen Non Reactive Non Reactive 05/31/2022 10:07 PM MEDICAL PRACTICE ASSISTANT [facility] ([facility]) Comment: HIV Negative HIV-1/HIV-2 antibodies and HIV-1 p24 antigen were NOT detected. There is no laboratory evidence of HIV infection. Blood BLOOD SPECIMEN / Unknown Venipuncture / Unknown 05/29/2022 7:47 AM MEDICAL PRACTICE ASSISTANT 05/29/2022 7:47 AM MEDICAL PRACTICE ASSISTANT Narrative [facility] ([facility]) - 05/31/2022 10:07 PM MEDICAL PRACTICE ASSISTANT Performed at: ??[address] ??[id number] Call Specialist: Tim Alamo MD, Phone: ??[phone] Beena NAVARRO LABORATORY Performing Organization Address [facility]/ZIP Co de Phone Number [facility] ([facility]ET) [address] [place] [address], from Last 3 Months or Most Recently Relevant to Health Maintenance Care Teams Coil Maker Relationship Specialty Start Date End Date Clinic, [facility] [address] [place] [address] PCP - General 11/05/23
[2024-01-11 17:41] LABS: Chloride* 105 mmol/L (96-114); Potassium* 4.1 mmol/L (3.6-5.1); Sodium* 137 mmol/L (135-149)
[2024-01-11 17:44] LABS: Anion Gap 9 mEq/L (7-15); Carbon Dioxide* 23 mmol/L (20-32); Creatinine* 0.6 mg/dL (0.5-1.5); Est. Creatinine Clearance* 138.85; Estimated Glomerular Filt Rate 131 ml/min
[2024-01-11 17:45] LABS: Blood Urea Nitrogen* 9 mg/dL (5-24); Calcium* 9.1 mg/dL (8.4-10.6); Glucose* 88 mg/dL (60-115)
[2024-01-11 17:46] LABS: Mono Screen* Negative (Negative)
[2024-01-11 18:21] LABS: Strep A DNA Probe* NOT DETECTED (Not Detectd)
[2024-01-11 18:34] LABS: PCR FLU A Negative PCR FLU A (Negative); PCR FLU B Negative PCR FLU B (Negative); PCR RSV Negative PCR RSV (Negative); SARS PCR* Negative SARS-CoV-2 (Negative)
[2024-01-11 18:40] LABS: Appearance Urine Clear (Clear); Bilirubin Urine Negative (Negative); Blood Urine Trace-intact (Negative); Color Urine Yellow (Yellow); Glucose Urine Negative (Negative); Ketones Urine Negative (Negative); Leukocyte Esterase Urine Negative (Negative); Nitrite Urine Negative (Negative); Protein Urine Negative (Negative); Ur HCG Qualitative* Negative (Negative); Urobilinogen Urine 0.2 (0.2-1.0); pH Urine 8.5 (5.0-8.5)
[2024-01-11 19:00] LABS: WBC Urine 0-2 (0-5)
[2024-01-11] MEDS: CETIRIZINE HCL 10 MG TABLET PO (19:27)
== END 2024-01-11 19:29 | disposition home or self-care (01) ==
PROVIDERS: Emergency Provider Family Medicine; PCP Family Medicine
DX: R42 Dizziness and giddiness (principal); D64.9 Anemia, unspecified
CPT/HCPCS: 36415; 80048; 81001; 81025; 85025; 86308; 87631; 87651; 93005; 99284; A9270